=== PATIENT | female | born 1990 | race African-American/Black ===

== ENCOUNTER 2016-03-25 13:37 | Observation (INO) | payer OTHER ==
[2016-03-25] MEDS ORDERED: ONDANSETRON 4 MG/2 ML VIAL IVP STA ×2 (14:19→18:39)
[2016-03-25] MEDS ORDERED: SODIUM CHLORIDE 0.9% 500 ML IV STA (14:19)
[2016-03-25] MEDS ORDERED: SODIUM CHLORIDE 0.9% 1,000 ML IV STA (14:19)
[2016-03-25] MEDS ORDERED: MORPHINE SULFATE 2 MG/ML SYRINGE IVP ONE (14:25)
--- NOTE | 2016-03-25 14:30 | ED ---
Nausea/Vomiting/Diarrhea HPI - General Chief complaint: Nausea/Vomiting/Diarrhea Stated complaint: Vomiting Time Seen by Provider: 03/25/16 14:09 Source: patient Mode of arrival: ambulatory Limitations: no limitations - History of Present Illness Initial comments: She vomited several times since 2 AM this morning she said she threw up about 5 times also complaining of abdominal pain is painful in the right upper quadrant area painful in the right lower quadrant area and it hurts to P as well she denies any fever no chills. She had a hamburger and fries at [employer] yesterday and that she had a feeling of uneasiness after she ate that meal she is concerned he could've been food poisoning. She has no history of any abdominal surgeries as well as appendix and gallbladder is concerned. Denies any headaches no migraines no chest pains review of system is otherwise negative - Related Data Home Medications Medication Instructions Recorded Confirmed No Known Home Medications [No 03/25/16 03/25/16 Known Home Medications] Allergies Allergy/AdvReac Type Severity Reaction Status Date / Time No Known Allergies Allergy Verified 03/25/16 13:53 Review of Systems ROS Statement: Those systems with pertinent positive or pertinent negative responses have been documented in the HPI. ROS Other: All systems not noted in ROS Statement are negative. Past Medical History Past Medical History: No Reported History History of Any Multi-Drug Resistant Organisms: None Reported, MRSA Date of last positivie culture/infection: 2010 MDRO Source:: inner left thigh Past Surgical History: Ear Surgery, Tonsillectomy Past Anesthesia/Blood Transfusion Reactions: No Reported Reaction Past Psychological History: No Psychological Hx Reported Smoking Status: Never smoker Past Alcohol Use History: None Reported Past Drug Use History: None Reported - Past Family History Father Family Medical History: Diabetes Mellitus General Exam - General Exam Comments Initial Comments: General: The patient is awake and alert, in no distress, and does not appear acutely ill. GCS is 15 Skin: Skin is warm and dry and no rashes or lesions are noted. Eye: Pupils are equal, round and reactive to light, extra-ocular movements are intact; there is normal conjunctiva bilaterally. Ears, nose, mouth and throat: There are moist mucous membranes and no oral lesions. Trachea is midline Neck: The neck is supple, there is no tenderness no signs of meningitis Cardiovascular: There is a regular rate and rhythm. No murmur, rub or gallop is appreciated. Respiratory: To auscultation bilateral, no wheezing no rhonchi no distress respiratory cl[place] noticed Gastrointestinal: Tender in the right upper quadrant area as well as right lower quadrant area, positive bowel sounds no guarding no rebounds Back: There is no tenderness to palpation in the midline. There is no obvious deformity. Musculoskeletal: Normal ROM, no tenderness, There is no pedal edema. There is no calf tenderness or swelling. No cords were appreciated. Neurological: CN II-XII intact, Cranial nerves III through XII are intact. There are no obvious motor or sensory deficits. Coordination appears grossly intact. Speech is normal. Psychiatric: Cooperative, appropriate mood & affect, normal judgment. Limitations: no limitations Course Vital Signs 03/25/16 03/25/16 13:46 17:31 Temperature 97.4 F L 97.9 F Pulse Rate 100 84 Respiratory 20 18 Rate Blood Pressure 121/84 124/58 O2 Sat by Pulse 97 100 Oximetry Had 1627 she is still nauseous and complaining about abdominal pain I reviewed the blood work as well as imaging and discussed with the patient considering her symptoms she will proceed with a CAT scan report and do the CT of the abdomen She was reassessed again at 1800 she still feels nauseous and complaining about pain in the right lower quadrant area exam on exam she forming machine tender right lower quadrant area, CT of the abdomen was reviewed and discussed with the patient and the CT of the abdomen shows some thickening of the appendix and considering her tenderness though her CBC, his metabolic panel a year or 3 are negative and she been afebrile but she is tender around plan to discuss the Dr. Nelson surgeon head correction officer and then go from there Dr. Nelson agreed to see the patient in the ER Medical Decision Making - Lab Data Result diagrams: 03/25/16 14:28 03/25/16 14:30 Lab Results 03/25/16 03/25/16 03/25/16 Range/Units 14:28 14:28 14:28 WBC 6.1 (3.8-10.6) k/uL RBC 4.71 (3.80-5.40) m/uL Hgb 14.2 (11.4-16.0) gm/dL Hct 44.2 (34.0-46.0) % MCV 93.9 (80.0-100.0) fL MCH 30.1 (25.0-35.0) pg MCHC 32.0 (31.0-37.0) g/dL RDW 12.3 (11.5-15.5) % Plt Count 247 (150-450) k/uL Neutrophils % 68 % Lymphocytes % 20 % Monocytes % 8 % Eosinophils % 2 % Basophils % 0 % Neutrophils # 4.1 (1.3-7.7) k/uL Lymphocytes # 1.2 (1.0-4.8) k/uL Monocytes # 0.5 (0-1.0) k/uL Eosinophils # 0.1 (0-0.7) k/uL Basophils # 0.0 (0-0.2) k/uL Sodium (137-145) mmol/L Potassium (3.5-5.1) mmol/L Chloride (98-107) mmol/L Carbon Dioxide (22-30) mmol/L Anion Gap mmol/L BUN (7-17) mg/dL Creatinine (0.52-1.04) mg/dL Est GFR (MDRD) Af Amer (>60 ml/min/1.73 sqM) Est GFR (MDRD) Non-Af (>60 ml/min/1.73 sqM) Glucose (74-99) mg/dL Calcium (8.4-10.2) mg/dL Total Bilirubin (0.2-1.3) mg/dL AST (14-36) U/L ALT (9-52) U/L Alkaline Phosphatase (38-126) U/L C-Reactive Protein 13.8 H (<10.0) mg/L Total Protein (6.3-8.2) g/dL Albumin (3.5-5.0) g/dL Amylase 48 (30-110) U/L Lipase 35 (23-300) U/L Urine Color Yellow Urine Appearance Cloudy H (Clear) Urine pH 6.5 (5.0-8.0) Ur Specific [place] 1.028 (1.001-1.035) Urine Protein 1+ H (Negative) Urine Glucose (UA) Negative (Negative) Urine Ketones Negative (Negative) Urine Blood Negative (Negative) Urine Nitrate Negative (Negative) Urine Bilirubin Negative (Negative) Urine Urobilinogen 4.0 (<2.0) mg/dL Ur Leukocyte Esterase Negative (Negative) Urine RBC 1 (0-5) /hpf Urine WBC 8 H (0-5) /hpf Ur Squamous Epith Cells 48 H (0-4) /hpf Amorphous Sediment Rare H (None) /hpf Urine Mucus Few H (None) /hpf Urine HCG, Qual (Not Detectd) 03/25/16 03/25/16 Range/Units 14:28 14:30 WBC (3.8-10.6) k/uL RBC (3.80-5.40) m/uL Hgb (11.4-16.0) gm/dL Hct (34.0-46.0) % MCV (80.0-100.0) fL MCH (25.0-35.0) pg MCHC (31.0-37.0) g/dL RDW (11.5-15.5) % Plt Count (150-450) k/uL Neutrophils % % Lymphocytes % % Monocytes % % Eosinophils % % Basophils % % Neutrophils # (1.3-7.7) k/uL Lymphocytes # (1.0-4.8) k/uL Monocytes # (0-1.0) k/uL Eosinophils # (0-0.7) k/uL Basophils # (0-0.2) k/uL Sodium 141 (137-145) mmol/L Potassium 4.2 (3.5-5.1) mmol/L Chloride 105 (98-107) mmol/L Carbon Dioxide 23 (22-30) mmol/L Anion Gap 13 mmol/L BUN 15 (7-17) mg/dL Creatinine 0.82 (0.52-1.04) mg/dL Est GFR (MDRD) Af Amer >60 (>60 ml/min/1.73 sqM) Est GFR (MDRD) Non-Af >60 (>60 ml/min/1.73 sqM) Glucose 87 (74-99) mg/dL Calcium 9.8 (8.4-10.2) mg/dL Total Bilirubin 1.2 (0.2-1.3) mg/dL AST 21 (14-36) U/L ALT 26 (9-52) U/L Alkaline Phosphatase 72 (38-126) U/L C-Reactive Protein (<10.0) mg/L Total Protein 7.8 (6.3-8.2) g/dL Albumin 4.4 (3.5-5.0) g/dL Amylase (30-110) U/L Lipase (23-300) U/L Urine Color Urine Appearance (Clear) Urine pH (5.0-8.0) Ur Specific [place] (1.001-1.035) Urine Protein (Negative) Urine Glucose (UA) (Negative) Urine Ketones (Negative) Urine Blood (Negative) Urine Nitrate (Negative) Urine Bilirubin (Negative) Urine Urobilinogen (<2.0) mg/dL Ur Leukocyte Esterase (Negative) Urine RBC (0-5) /hpf Urine WBC (0-5) /hpf Ur Squamous Epith Cells (0-4) /hpf Amorphous Sediment (None) /hpf Urine Mucus (None) /hpf Urine HCG, Qual Not Detected (Not Detectd) Disposition Clinical Impression: Abdominal pain Disposition: ADMITTED IP TO THIS [facility] Condition: Good Referrals: Logan Ray MD [Primary Care Provider] - 1-2 days
[2016-03-25 14:47] LABS: Basophils % (A) 0 %; CH 30.5; CHCM 32.6; Eosinophils # (A) 0.1 k/uL (0-0.7); Eosinophils % (A) 2 %; HCT 44.2 % (34.0-46.0); HGB 14.2 gm/dL (11.4-16.0); Luc # (Auto) 0.09; Luc % (Auto) 2; Lymphocytes # (A) 1.2 k/uL (1.0-4.8); Lymphocytes % (A) 20 %; MCH 30.1 pg (25.0-35.0); MCV 93.9 fL (80.0-100.0); Mean Platelet Volume 7.5; Monocytes # (A) 0.5 k/uL (0-1.0); Monocytes % (A) 8 %; Neutrophils # (A) 4.1 k/uL (1.3-7.7); Neutrophils % (A) 68 %; RBC 4.71 m/uL (3.80-5.40); RDW 12.3 % (11.5-15.5); WBC 6.1 k/uL (3.8-10.6); WBC (Perox) 6.23
[2016-03-25 14:50] LABS: Amorphous Sediment,Urine Rare /hpf; Appearance,Urine Cloudy (Clear); Bilirubin,Urine Negative (Negative); Glucose,Urine (UA) Negative (Negative); Ketones,Urine Negative (Negative); Leukocyte Esterase,Urine Negative (Negative); Mucus,Urine Few /hpf; Nitrite,Urine Negative (Negative); PH, Urine 6.5 (5.0-8.0); Particle Count 11301; Protein,Urine 1+ (Negative); RBC,Urine 1 /hpf (0-5); Specific Gravity,Urine 1.028 (1.001-1.035); Squamous Epithelial Cell,Urine 48 /hpf (0-4); UA Billing (MACRO vs. MICRO) MICRO; WBC,Urine 8 /hpf (0-5)
[2016-03-25 14:58] LABS: C Reactive Protein 13.8 mg/L (<10.0)
--- NOTE | 2016-03-25 15:50 | XR ---
EXAMINATION TYPE: XR KUB DATE OF EXAM: 03/25/2016 3:19 PM COMPARISON: NONE HISTORY: Vomiting TECHNIQUE: 2 views FINDINGS: Bowel gas pattern is normal. There is no sign of intestinal obstruction or pneumoperitoneum . Fecal pattern is normal. Bony structures are intact. There are no pathologic calcifications over th e kidneys. IMPRESSION: Nonacute abdomen.
--- NOTE | 2016-03-25 15:50 | XR ---
EXAMINATION TYPE: XR chest 2V DATE OF EXAM: 03/25/2016 3:19 PM COMPARISON: 04/23/2015 HISTORY: 2 views TECHNIQUE: Frontal and lateral views of the chest are obtained. FINDINGS: Heart and mediastinum are normal. Lungs are clear. Diaphragm is normal. Bony thorax and so ft tissues appear normal. IMPRESSION: Normal chest. No change.
[2016-03-25 15:57] LABS: ALT 26 U/L (9-52); AST 21 U/L (14-36); Alkaline Phosphatase 72 U/L (38-126); Anion Gap 13 mmol/L; Blood Urea Nitrogen 15 mg/dL (7-17); Calcium 9.8 mg/dL (8.4-10.2); Carbon Dioxide 23 mmol/L (22-30); Chloride 105 mmol/L (98-107); Glucose 87 mg/dL (74-99); Non-African American GFR(MDRD) >60 (>60 ml/min/1.73 sqM); Potassium 4.2 mmol/L (3.5-5.1); Sodium 141 mmol/L (137-145); Total Bilirubin 1.2 mg/dL (0.2-1.3); Total Protein 7.8 g/dL (6.3-8.2)
[2016-03-25] MEDS ORDERED: RX INFO: IV CONTRAST WAS GIVEN 1 EACH MISC MISCELLANE PRN (16:28)
--- NOTE | 2016-03-25 17:44 | CT ---
EXAMINATION TYPE: CT abdomen pelvis w con DATE OF EXAM: 03/25/2016 5:37 PM COMPARISON: NONE HISTORY: Nausea, vomiting and painful urination CT DLP: 706 mGycm Automated exposure control for dose reduction was used. TECHNIQUE: Helical acquisition of images was performed from the lung bases through the pelvis. CONTRAST: Performed without Oral Contrast and with IV Contrast, patient injected with 100 mL of Omnipaque 300. FINDINGS: Lung bases are clear. There is no pleural effusion. Liver spleen pancreas and gallbladder appear normal. Bile ducts are nondilated. There is no adrenal m ass. Kidneys show satisfactory contrast opacification. There is no hydronephrosis. Ureters are not di lated. There is no ascites. I see no intestinal wall thickening. There are no dilated loops. Bladder distend s smoothly. There is no evidence of a pelvic mass. The appendix is upper limit of normal thickness an d measures up to 8 mm. The bony structures are intact. IMPRESSION: THERE IS A CORTICAL THICKENING OF THE APPENDIX. APPENDICITIS CANNOT BE ENTIRELY EXCLUDED. CLINICAL CORRELATION IS RECOMMENDED. NO PELVIC MASS SEEN.
[2016-03-25] MEDS ORDERED: SODIUM CHLORIDE 0.9% 1,000 ML IV ONE (18:37)
[2016-03-25 19:40] VITALS: BMI 25.8
[2016-03-25] MEDS: MORPHINE SULFATE 4 MG/ML SYRINGE IVP PRN (19:47)
[2016-03-25] MEDS ORDERED: METOCLOPRAMIDE 5 MG/ML 2 ML VIAL ONE (20:41)
[2016-03-25] MEDS: METOCLOPRAMIDE 5 MG/ML 2 ML VIAL IVP SCH (20:42)
[2016-03-25] MEDS ORDERED: ONDANSETRON 4 MG/2 ML VIAL IVP PRN (21:14)
[2016-03-25 23:19] VITALS: RESP 16
[2016-03-26] MEDS: MORPHINE SULFATE 4 MG/ML SYRINGE IVP PRN (01:29)
[2016-03-26] MEDS: METOCLOPRAMIDE 5 MG/ML 2 ML VIAL IVP SCH ×2 (05:27→11:41)
[2016-03-26 07:01] LABS: Basophils # (A) 0.1 k/uL (0-0.2); Basophils % (A) 1 %; CH 30.3; CHCM 32.3; Eosinophils # (A) 0.3 k/uL (0-0.7); Eosinophils % (A) 7 %; HCT 37.3 % (34.0-46.0); HDW 2.12; Luc # (Auto) 0.17; Luc % (Auto) 4; Lymphocytes # (A) 2.1 k/uL (1.0-4.8); Lymphocytes % (A) 49 %; MCH 30.3 pg (25.0-35.0); MCHC 32.1 g/dL (31.0-37.0); MCV 94.2 fL (80.0-100.0); Mean Platelet Volume 7.7; Monocytes # (A) 0.5 k/uL (0-1.0); Monocytes % (A) 11 %; Neutrophils # (A) 1.2 k/uL (1.3-7.7); Neutrophils % (A) 29 %; RBC 3.96 m/uL (3.80-5.40); RDW 12.1 % (11.5-15.5); WBC 4.3 k/uL (3.8-10.6); WBC (Perox) 4.18
[2016-03-26 07:14] LABS: ALT 27 U/L (9-52); AST 18 U/L (14-36); Alkaline Phosphatase 59 U/L (38-126); Anion Gap 8 mmol/L; Blood Urea Nitrogen 10 mg/dL (7-17); Carbon Dioxide 23 mmol/L (22-30); Chloride 108 mmol/L (98-107); Glucose 73 mg/dL (74-99); Non-African American GFR(MDRD) >60 (>60 ml/min/1.73 sqM); Sodium 139 mmol/L (137-145); Total Bilirubin 0.6 mg/dL (0.2-1.3); Total Protein 5.9 g/dL (6.3-8.2)
[2016-03-26] MEDS ORDERED: HYDROcodone/APAP 5-325MG 1 EACH TAB PO PRN (09:54)
--- NOTE | 2016-03-26 10:22 | P.GSHP ---
History of Present Illness H&P Date: 04/02/16 Chief Complaint: Abdominal pain 25 years old female presented with bilateral lower abdominal pain with nausea and vomiting. She is also having multiple bowel movements. No fever, chills or rigors. Some burning sensation in the urine. Last menstrual period 2 weeks ago. No prior history of similar painful episodes. Pain rated 7 out of 10. Patient slept well throughout the night. - Review of Systems Comment: Constitutional: Denies fever, weight loss or loss of appetite HEENT: No difficulty in vision or hearing. Denies dysphagia. Cardiovascular: Denies chest pain, palpitations, dizziness, shortness of breath. Respiratory: No cough or shortness of breath Gastrointestinal: No recent change in bowel habits, no abdominal pain, no nausea or vomiting. Genitourinary: No urinary incontinence, hematuria or dysuria Neurologic: No seizures, denies weakness in upper or lower extremities Past Medical History Past Medical History: No Reported History, Pneumonia History of Any Multi-Drug Resistant Organisms: None Reported, MRSA Date of last positivie culture/infection: 2010 MDRO Source:: inner left thigh Past Surgical History: Ear Surgery, Tonsillectomy Past Anesthesia/Blood Transfusion Reactions: No Reported Reaction Past Psychological History: No Psychological Hx Reported Smoking Status: Never smoker Past Alcohol Use History: None Reported Past Drug Use History: None Reported - Past Family History Father Family Medical History: Diabetes Mellitus Medications and Allergies Home Medications Medication Instructions Recorded Confirmed Type No Known Home Medications [No 03/25/16 03/25/16 History Known Home Medications] Allergies Allergy/AdvReac Type Severity Reaction Status Date / Time No Known Allergies Allergy Verified 03/25/16 19:51 Surgical - Exam Vital Signs Temp Pulse Resp BP Pulse Ox 97.4 F L 100 20 121/84 97 03/25/16 13:46 03/25/16 13:46 03/25/16 13:46 03/25/16 13:46 03/25/16 13:46 General: Patient is alert and oriented to time, place and person and cooperative with exam. HEENT: No pallor, no icterus, Chest: Bilateral equal breath sounds present. No wheezes, no crackles. Cardiovascular: Regular rate and rhythm. Abdomen: SOft, nondistended. Bilateral lower quadrant tenderness on deep palpation. Neurologic: Cranial nerves II-XII intact. Strength upper and lower extremities 5/5. No focal neurologic deficits. Gait is normal. Psychiatric: No anxiety or psychosis. No suicidal thoughts. Results - Labs 03/26/16 06:48 03/26/16 06:45 Abnormal Lab Results - Last 24 Hours (Table) 03/26/16 03/26/16 Range/Units 06:45 06:48 Neutrophils # 1.2 L (1.3-7.7) k/uL Chloride 108 H (98-107) mmol/L Glucose 73 L (74-99) mg/dL Total Protein 5.9 L (6.3-8.2) g/dL Albumin 3.2 L (3.5-5.0) g/dL Diabetes panel 03/26/16 Range/Units 06:45 Sodium 139 (137-145) mmol/L Potassium 4.0 (3.5-5.1) mmol/L Chloride 108 H (98-107) mmol/L Carbon Dioxide 23 (22-30) mmol/L BUN 10 (7-17) mg/dL Creatinine 0.89 (0.52-1.04) mg/dL Glucose 73 L (74-99) mg/dL Calcium 9.0 (8.4-10.2) mg/dL AST 18 (14-36) U/L ALT 27 (9-52) U/L Alkaline Phosphatase 59 (38-126) U/L Total Protein 5.9 L (6.3-8.2) g/dL Albumin 3.2 L (3.5-5.0) g/dL Calcium panel 03/26/16 Range/Units 06:45 Calcium 9.0 (8.4-10.2) mg/dL Albumin 3.2 L (3.5-5.0) g/dL Pituitary panel 03/26/16 Range/Units 06:45 Sodium 139 (137-145) mmol/L Potassium 4.0 (3.5-5.1) mmol/L Chloride 108 H (98-107) mmol/L Carbon Dioxide 23 (22-30) mmol/L BUN 10 (7-17) mg/dL Creatinine 0.89 (0.52-1.04) mg/dL Glucose 73 L (74-99) mg/dL Calcium 9.0 (8.4-10.2) mg/dL Adrenal panel 03/26/16 Range/Units 06:45 Sodium 139 (137-145) mmol/L Potassium 4.0 (3.5-5.1) mmol/L Chloride 108 H (98-107) mmol/L Carbon Dioxide 23 (22-30) mmol/L BUN 10 (7-17) mg/dL Creatinine 0.89 (0.52-1.04) mg/dL Glucose 73 L (74-99) mg/dL Calcium 9.0 (8.4-10.2) mg/dL Total Bilirubin 0.6 (0.2-1.3) mg/dL AST 18 (14-36) U/L ALT 27 (9-52) U/L Alkaline Phosphatase 59 (38-126) U/L Total Protein 5.9 L (6.3-8.2) g/dL Albumin 3.2 L (3.5-5.0) g/dL - Imaging CT scan - abdomen: other (Computed tomography scan of the abdomen and pelvis reviewed. No evidence of acute appendicitis. No fat stranding. Air present in the appendiceal lumen. Computed tomography scan reviewed with radiologist Dr. Aguirre) Assessment and Plan (1) Abdominal pain Status: Acute Plan: 1. Start clear liquid diet 2. No leukocytosis. Patient was not given any IV antibiotics. 3. IV hydration 4. Discharge planning in next 24 hours
[2016-03-26 11:42] VITALS: BP 97/45; PULSE 65; TEMP 98.6
--- NOTE | 2016-03-26 14:54 | P.DS ---
Providers Date of admission: 03/25/16 18:37 Expected date of discharge: 03/26/16 Attending physician: Alana Nelson Primary care physician: [facility] Hospital Course: 25-year-old female presented on the day of admission to the emergency room to be evaluated for a chief complaint of developing bilateral lower abdominal pain with nausea and vomiting. Patient reports that she had been having multiple bowel movements. Additionally patient reports not experiencing any fever chills or rigors. Patient's last menstrual period was 2 weeks prior. Patient gives no history of any similar painful episodes. Patient did report in the emergency room that she had vomited several times since 2:00 in the morning and it seemed to occur after she ate a hamburger and vietnamese fries. She states after eating the food she had a non-easy sensation and was concerned that she may have developed food poisoning. There were no other family members sick. Patient has no significant past surgical history. Emergency room the patient had a CAT scan of the abdomen and pelvis. Showed no evidence of acute appendicitis. Patient was started on IV fluid and clear liquid diet the symptoms resolve. There was no leukocytosis. Patient was not given any antibiotics. Patient was felt to be hemodynamically stable and appropriate proceed with a discharge on March 26 Impression discharge diagnosis Present on admission nausea vomiting frequent stooling suspect due to gastroenteritis possible viral resolved Computerized CAT scan of the abdomen and pelvis shows no evidence of acute appendicitis The above dictated assessment and findings were discussed with dr nelson. Impression and the plan of care have been dictated as directed. Alvina Breaux nurse practitioner acting as a scribe for dr nelson Patient Condition at Discharge: Good Plan - Discharge Summary Discharge Medication List No Known Home Medications [No Known Home Medications] 03/25/16 [History] Follow up Appointment(s)/Referral(s): Logan Ray MD [Primary Care Provider] - 1-2 days Discharge Disposition: HOME SELF-CARE
== END 2016-03-26 15:45 | disposition home or self-care (01) ==
LOC: EC 13:37 → 3OBS 18:37
PROVIDERS: ADMIT Surgery; ATTEND Surgery
DX: R11.2 Nausea with vomiting, unspecified (principal); R10.31 Right lower quadrant pain; Z86.14 Personal history of Methicillin resistant Staphylococcus aureus infection; Z83.3 Family history of diabetes mellitus
CPT/HCPCS: 36415; 80053 ×2; 82150; 83690; 85025 ×2; 86140; 81001; 81025; 87491; 87591; 71020; 74000; 74177; 99285; 96374; 96375; 96376; 96361 ×5; G0378 ×2; J2270 ×3; J2765 ×2; J2405 ×2; Q9967

== ENCOUNTER 2016-04-27 12:39 | Emergency (ER) | payer OTHER ==
[2016-04-27 12:54] VITALS: BP 121/68; PULSE 88; RESP 17; TEMP 98.8
--- NOTE | 2016-04-27 13:34 | ED ---
General Adult HPI - General Chief complaint: Fever Stated complaint: Fever/Cough Time Seen by Provider: 04/27/16 12:57 Source: patient, RN notes reviewed Mode of arrival: ambulatory Limitations: no limitations - History of Present Illness Initial comments: This is a 25-year-old female presents with 2 days of cough, congestion and vomiting/diarrhea. Mother states her children have had similar symptoms and she has recently come down with them. Patient states the cough has been productive. Mother admits to a fever but this is only subjective. Mother admits to a sore throat. Mother denies any chance of being . Mother did not receive a flu shot this year. Mother denies any hematochezia or hematemesis. Patient denies any recent shortness breath, chest pain, abdominal pain, back pain, numbness, tingling, hematuria, headache, or visual changes, or any other complaints. - Related Data Previous Rx's Medication Instructions Recorded Oseltamivir [Tamiflu] 75 mg PO Q12HR 5 Days 04/27/16 Allergies Allergy/AdvReac Type Severity Reaction Status Date / Time No Known Allergies Allergy Verified 03/25/16 19:51 Review of Systems ROS Statement: Those systems with pertinent positive or pertinent negative responses have been documented in the HPI. ROS Other: All systems not noted in ROS Statement are negative. Past Medical History Past Medical History: No Reported History, Pneumonia History of Any Multi-Drug Resistant Organisms: None Reported, MRSA Date of last positivie culture/infection: 2010 MDRO Source:: inner left thigh Past Surgical History: Ear Surgery, Tonsillectomy Past Anesthesia/Blood Transfusion Reactions: No Reported Reaction Past Psychological History: No Psychological Hx Reported Smoking Status: Never smoker Past Alcohol Use History: None Reported Past Drug Use History: None Reported - Past Family History Father Family Medical History: Diabetes Mellitus General Exam - General Exam Comments Initial Comments: General: The patient is awake and alert, in no distress, and does not appear acutely ill. Eye: Pupils are equal, round and reactive to light, extra-ocular movements are intact. No nystagmus. There is normal conjunctiva bilaterally. No signs of icterus. Ears: TMs pink and pearly with intact cone of light bilaterally. Normal external ear canals Nose: Nasal turbinates pink and moist Mouth and throat: There are moist mucous membranes and no oral lesions. Neck: Anterior cervical chain lymphadenopathy present and mildly tender. The neck is supple, there is no JVD. Cardiovascular: There is a regular rate and rhythm. No murmur, rub or gallop is appreciated. Respiratory: Lungs are clear to auscultation, respirations are non-labored, breath sounds are equal. No wheezes, stridor, rales, or rhonchi. Musculoskeletal: Normal ROM, no tenderness. Strength 5/5. Sensation intact. Radial pulses equal bilaterally 2+. Neurological: A&O x 3. CN II-XII intact, There are no obvious motor or sensory deficits. Coordination appears grossly intact. Speech is normal. Skin: Skin is warm and dry and no rashes or lesions are noted. Psychiatric: Cooperative, appropriate mood & affect, normal judgment. Limitations: no limitations Course Vital Signs 04/27/16 12:51 Temperature 98.8 F Pulse Rate 88 Respiratory 17 Rate Blood Pressure 121/68 O2 Sat by Pulse 95 Oximetry Medical Decision Making - Medical Decision Making This is a 25-year-old female presents with cough, congestion and nausea/ vomiting 2 days. The goal exam lungs are clear to auscultation. Patient is afebrile in the EC. A chest x-ray, influenza and rapid strep were done. Chest x-ray was reviewed: No acute process. Report read by Dr. Hansen. A strep and influenza were done. Influenza B came back positive, influenza A was negative. Strep came back negative. I discussed results with patient. Patient states her symptoms have started within the last 48 hours. I discussed the patient will be started on Tamiflu. I discussed Tylenol and or Motrin as needed for any pain or fever symptoms. I discussed the patient needs to drink plenty of fluids. I discussed return parameters.Discussed that patient should follow up with PCP in one to 2 days or return to the EC for any worsening symptoms or for any further concerns. Patient was receptive to this plan and patient will be discharged home. - Lab Data Lab Results 04/27/16 04/27/16 Range/Units 13:18 13:18 Influenza Type A RNA Not Detected (Not Detectd) Influenza Type B (PCR) Detected H (Not Detectd) Group A Strep Rapid Negative (Negative) Disposition Clinical Impression: Influenza B Disposition: HOME SELF-CARE Condition: Good Instructions: Influenza (ED) Additional Instructions: Please use Tamiflu as prescribed. Please be sure to drink plenty of fluids. Please use Tylenol or Motrin as needed for any pain or fever symptoms. Please use medication as discussed. Please follow-up with family doctor in the next 2 days of symptoms have not improved. Please return to emergency room if the symptoms increase or worsen or for any other concerns. Prescriptions: Oseltamivir [Tamiflu] 75 mg PO Q12HR 5 Days Time of Disposition: 14:18
--- NOTE | 2016-04-27 14:06 | XR ---
EXAMINATION TYPE: XR chest 2V DATE OF EXAM: 04/27/2016 2:02 PM COMPARISON: 03/25/2016 TECHNIQUE: PA and lateral views submitted. HISTORY: Cough and congestion FINDINGS: The lungs are clear and there is no pneumothorax, pleural effusion, or focal pneumonia. IMPRESSION: 1. No acute process.
== END 2016-04-27 15:22 | disposition home or self-care (01) ==
LOC: EC 12:39
DX: J10.1 Influenza due to other identified influenza virus with other respiratory manifestations (principal); J10.2 Influenza due to other identified influenza virus with gastrointestinal manifestations
CPT/HCPCS: 71020; 87081; 87430; 87502; 99283

== ENCOUNTER 2016-12-08 16:24 | Emergency (ER) | payer OTHER ==
[2016-12-08] MEDS ORDERED: SODIUM CHLORIDE 0.9% 1,000 ML IV STA (16:35)
[2016-12-08] MEDS ORDERED: DICYCLOMINE 10 MG/ML 2 ML AMP IM STA (16:35)
[2016-12-08] MEDS ORDERED: ONDANSETRON 4 MG/2 ML VIAL IVP STA (16:35)
[2016-12-08 16:57] LABS: Basophils # (A) 0.1 k/uL (0-0.2); Basophils % (A) 1 %; CH 30.4; CHCM 32.4; Eosinophils # (A) 0.3 k/uL (0-0.7); Eosinophils % (A) 5 %; HCT 40.9 % (34.0-46.0); HGB 13.2 gm/dL (11.4-16.0); Luc # (Auto) 0.18; Luc % (Auto) 3; Lymphocytes # (A) 2.8 k/uL (1.0-4.8); Lymphocytes % (A) 45 %; MCH 30.4 pg (25.0-35.0); MCHC 32.2 g/dL (31.0-37.0); MCV 94.3 fL (80.0-100.0); Mean Platelet Volume 7.3; Monocytes # (A) 0.4 k/uL (0-1.0); Monocytes % (A) 7 %; Neutrophils # (A) 2.4 k/uL (1.3-7.7); Neutrophils % (A) 39 %; RBC 4.34 m/uL (3.80-5.40); RDW 12.3 % (11.5-15.5); WBC 6.2 k/uL (3.8-10.6)
[2016-12-08 17:00] LABS: Appearance,Urine Clear (Clear); Bilirubin,Urine Negative (Negative); Glucose,Urine (UA) Negative (Negative); Ketones,Urine Negative (Negative); Leukocyte Esterase,Urine Negative (Negative); Nitrite,Urine Negative (Negative); PH, Urine 5.5 (5.0-8.0); Protein,Urine Negative (Negative); Specific Gravity,Urine 1.016 (1.001-1.035); UA Billing (MACRO vs. MICRO) CHEM; Urobilinogen,Urine <2.0 mg/dL (<2.0)
[2016-12-08 17:08] LABS: ALT 28 U/L (9-52); AST 20 U/L (14-36); Alkaline Phosphatase 50 U/L (38-126); Amylase 56 U/L (30-110); Anion Gap 10 mmol/L; Blood Urea Nitrogen 9 mg/dL (7-17); Calcium 9.3 mg/dL (8.4-10.2); Carbon Dioxide 22 mmol/L (22-30); Chloride 107 mmol/L (98-107); Glucose 88 mg/dL (74-99); Non-African American GFR(MDRD) >60 (>60 ml/min/1.73 sqM); Potassium 3.8 mmol/L (3.5-5.1); Sodium 139 mmol/L (137-145); Total Bilirubin 0.7 mg/dL (0.2-1.3); Total Protein 7.1 g/dL (6.3-8.2)
--- NOTE | 2016-12-08 17:12 | ED ---
General Adult HPI - General Chief complaint: Abdominal Pain Stated complaint: vomiting, diarrhea, lower abdominal pain Time Seen by Provider: 12/08/16 16:29 Source: patient, RN notes reviewed Mode of arrival: ambulatory Limitations: no limitations - History of Present Illness Initial comments: 26-year-old female presents to the emergency department with a chief complaint nausea vomiting diarrhea that started today. She states that she's vomited a few times and had diarrhea. Patient states she's having some abdominal cramping with this. Patient denies any fever chills. Patient denies any different foods. Patient states now it also sick at home. Patient was concerned due to the nausea vomiting so she thought that she should be evaluated. Patient denies any recent fever, chills, shortness of breath, chest pain, back pain, abdominal pain, numbness or tingling, dysuria or hematuria, constipation, headaches or visual changes, or any other current symptoms. - Related Data Previous Rx's Medication Instructions Recorded Dicyclomine [Bentyl] 10 mg PO TID #20 capsule 12/08/16 Ondansetron Odt [Zofran ODT] 4 mg PO Q8HR PRN #20 tab 12/08/16 Allergies Allergy/AdvReac Type Severity Reaction Status Date / Time No Known Allergies Allergy Verified 12/08/16 16:48 Review of Systems ROS Statement: Those systems with pertinent positive or pertinent negative responses have been documented in the HPI. ROS Other: All systems not noted in ROS Statement are negative. Past Medical History Past Medical History: Pneumonia History of Any Multi-Drug Resistant Organisms: None Reported, MRSA Date of last positivie culture/infection: 2010 MDRO Source:: inner left thigh Past Surgical History: Ear Surgery, Tonsillectomy Past Anesthesia/Blood Transfusion Reactions: No Reported Reaction Past Psychological History: No Psychological Hx Reported Smoking Status: Never smoker Past Alcohol Use History: None Reported Past Drug Use History: None Reported - Past Family History Father Family Medical History: Diabetes Mellitus General Exam - General Exam Comments Initial Comments: General: The patient is awake and alert, in no distress, and does not appear acutely ill. Eye: Pupils are equal, round and reactive to light, extra-ocular movements are intact; there is normal conjunctiva bilaterally. No signs of icterus. Ears, nose, mouth and throat: There are moist mucous membranes and no oral lesions. Neck: The neck is supple, there is no tenderness. Cardiovascular: There is a regular rate and rhythm. No murmur, rub or gallop is appreciated. Respiratory: Lungs are clear to auscultation, respirations are non-labored, breath sounds are equal. No wheezes, stridor, rales, or rhonchi. Gastrointestinal: Soft, non-distended, non-tender abdomen without masses or organomegaly noted. There is no rebound or guarding present. No CVA tenderness. Bowel sounds are unremarkable. Back: There is no tenderness to palpation in the midline. There is no obvious deformity. No rashes noted. Musculoskeletal: Normal ROM, no tenderness, There is no pedal edema. There is no calf tenderness or swelling. Sensation intact. Pulses equal bilaterally 2+. Neurological: CN II-XII intact, There are no obvious motor or sensory deficits. Coordination appears grossly intact. Speech is normal. Skin: Skin is warm and dry and no rashes or lesions are noted. Psychiatric: Cooperative, appropriate mood & affect, normal judgment. Limitations: no limitations Course Vital Signs 12/08/16 16:27 Temperature 97.8 F Pulse Rate 101 H Respiratory 18 Rate Blood Pressure 138/61 O2 Sat by Pulse 100 Oximetry Medical Decision Making - Medical Decision Making 26-year-old female presents for nausea vomiting diarrhea. This time lab work has been reviewed we did discuss follow-up. Soft and nontender and she is feeling better. We'll give her Zofran and Bentyl for home. We did discuss all of her questions she stated that she understood this plan. This time she will be discharged. - Lab Data Result diagrams: 12/08/16 16:47 12/08/16 16:47 Lab Results 12/08/16 12/08/16 12/08/16 Range/Units 16:47 16:47 16:53 WBC 6.2 (3.8-10.6) k/uL RBC 4.34 (3.80-5.40) m/uL Hgb 13.2 (11.4-16.0) gm/dL Hct 40.9 (34.0-46.0) % MCV 94.3 (80.0-100.0) fL MCH 30.4 (25.0-35.0) pg MCHC 32.2 (31.0-37.0) g/dL RDW 12.3 (11.5-15.5) % Plt Count 252 (150-450) k/uL Neutrophils % 39 % Lymphocytes % 45 % Monocytes % 7 % Eosinophils % 5 % Basophils % 1 % Neutrophils # 2.4 (1.3-7.7) k/uL Lymphocytes # 2.8 (1.0-4.8) k/uL Monocytes # 0.4 (0-1.0) k/uL Eosinophils # 0.3 (0-0.7) k/uL Basophils # 0.1 (0-0.2) k/uL Sodium 139 (137-145) mmol/L Potassium 3.8 (3.5-5.1) mmol/L Chloride 107 (98-107) mmol/L Carbon Dioxide 22 (22-30) mmol/L Anion Gap 10 mmol/L BUN 9 (7-17) mg/dL Creatinine 0.83 (0.52-1.04) mg/dL Est GFR (MDRD) Af Amer >60 (>60 ml/min/1.73 sqM) Est GFR (MDRD) Non-Af >60 (>60 ml/min/1.73 sqM) Glucose 88 (74-99) mg/dL Calcium 9.3 (8.4-10.2) mg/dL Total Bilirubin 0.7 (0.2-1.3) mg/dL AST 20 (14-36) U/L ALT 28 (9-52) U/L Alkaline Phosphatase 50 (38-126) U/L Total Protein 7.1 (6.3-8.2) g/dL Albumin 4.0 (3.5-5.0) g/dL Amylase 56 (30-110) U/L Lipase 47 (23-300) U/L Urine Color Urine Appearance (Clear) Urine pH (5.0-8.0) Ur Specific [place] (1.001-1.035) Urine Protein (Negative) Urine Glucose (UA) (Negative) Urine Ketones (Negative) Urine Blood (Negative) Urine Nitrite (Negative) Urine Bilirubin (Negative) Urine Urobilinogen (<2.0) mg/dL Ur Leukocyte Esterase (Negative) Urine HCG, Qual Not Detected (Not Detectd) 12/08/16 Range/Units 16:53 WBC (3.8-10.6) k/uL RBC (3.80-5.40) m/uL Hgb (11.4-16.0) gm/dL Hct (34.0-46.0) % MCV (80.0-100.0) fL MCH (25.0-35.0) pg MCHC (31.0-37.0) g/dL RDW (11.5-15.5) % Plt Count (150-450) k/uL Neutrophils % % Lymphocytes % % Monocytes % % Eosinophils % % Basophils % % Neutrophils # (1.3-7.7) k/uL Lymphocytes # (1.0-4.8) k/uL Monocytes # (0-1.0) k/uL Eosinophils # (0-0.7) k/uL Basophils # (0-0.2) k/uL Sodium (137-145) mmol/L Potassium (3.5-5.1) mmol/L Chloride (98-107) mmol/L Carbon Dioxide (22-30) mmol/L Anion Gap mmol/L BUN (7-17) mg/dL Creatinine (0.52-1.04) mg/dL Est GFR (MDRD) Af Amer (>60 ml/min/1.73 sqM) Est GFR (MDRD) Non-Af (>60 ml/min/1.73 sqM) Glucose (74-99) mg/dL Calcium (8.4-10.2) mg/dL Total Bilirubin (0.2-1.3) mg/dL AST (14-36) U/L ALT (9-52) U/L Alkaline Phosphatase (38-126) U/L Total Protein (6.3-8.2) g/dL Albumin (3.5-5.0) g/dL Amylase (30-110) U/L Lipase (23-300) U/L Urine Color Yellow Urine Appearance Clear (Clear) Urine pH 5.5 (5.0-8.0) Ur Specific [place] 1.016 (1.001-1.035) Urine Protein Negative (Negative) Urine Glucose (UA) Negative (Negative) Urine Ketones Negative (Negative) Urine Blood Negative (Negative) Urine Nitrite Negative (Negative) Urine Bilirubin Negative (Negative) Urine Urobilinogen <2.0 (<2.0) mg/dL Ur Leukocyte Esterase Negative (Negative) Urine HCG, Qual (Not Detectd) - Radiology Data Radiology results: report reviewed, image reviewed Disposition Clinical Impression: Nausea & vomiting, Diarrhea Disposition: HOME SELF-CARE Condition: Stable Instructions: Acute Nausea and Vomiting (ED) Additional Instructions: Please use medication as discussed. Please follow up with family doctor if symptoms have not improved over the next two days. Please return to the emergency room if your symptoms increase or worsen or for any other concerns. Prescriptions: Dicyclomine [Bentyl] 10 mg PO TID #20 capsule Ondansetron Odt [Zofran ODT] 4 mg PO Q8HR PRN #20 tab PRN Reason: Nausea Referrals: Cari Andersen MD [STAFF PHYSICIAN] - 1-2 days Time of Disposition: 18:10
--- NOTE | 2016-12-08 18:07 | XR ---
EXAMINATION TYPE: XR abdomen 2V DATE OF EXAM: 12/08/2016 COMPARISON: 03/25/2016 INDICATION: Pain diarrhea TECHNIQUE: 2 view abdomen upright and supine views FINDINGS: There is a normal bowel gas pattern. Psoas margins are normal. No organomegaly is present. Neighboring is in the midline IMPRESSION: 1. Unremarkable Abdomen
[2016-12-08 18:16] VITALS: BP 111/66; PULSE 87; RESP 20; TEMP 98.2
== END 2016-12-08 18:16 | disposition home or self-care (01) ==
LOC: EC 16:24
DX: R11.2 Nausea with vomiting, unspecified (principal); R19.7 Diarrhea, unspecified; R10.9 Unspecified abdominal pain; Z86.14 Personal history of Methicillin resistant Staphylococcus aureus infection
CPT/HCPCS: 99284 ×2; 96374 ×2; 96361 ×2; 96372 ×2; 36415; 80053; 82150; 83690; 85025; 81003; 81025; 74020; J0500; J2405

== ENCOUNTER → 2017-01-25 | Outpatient (CLI) | payer OTHER ==
--- NOTE | 2017-01-25 14:29 | US ---
EXAMINATION TYPE: US OB <= 14 wk fetus DATE OF EXAM: 01/25/2017 COMPARISON: 07/23/2015 CLINICAL HISTORY: Z36 confirm dates. EXAM PERFORMED: Transabdominal (TA) EXAM MEASUREMENTS: GESTATIONAL AGE / DATING Physician Established: (9 weeks/5 days) EDC: 08/24/2017 Dates by LMP: (9 weeks/5 days) EDC: 08/24/2017 Dates by First Scan: No previous this is first scan Dates by Current Scan for: (10 weeks/2 days) EDC: 08/24/2017 MATERNAL ANATOMY Uterus: 16.0 x 10.4 x 2.2 cm Right Ovary: 2.2 x 1.9 x 1.7 cm Left Ovary: 4.1 x 3.1 x 2.6 cm Post CDS / Adnexa: wnl Presence of free fluid: no Presence of corpus luteal cyst: yes Presence of subchorionic bleed: no GESTATION / SURVEY CRL: 3.4 (10 weeks/2 days) Yolk Sac (normal less than 6mm): 4 Heart Rate: 168 bpm Rhythm: Normal IUP: Viable IUP Date of LMP: 11/17/2016 Beta HcG (if available): Not available at this time IMPRESSION: Viable 10 weeks 2 days with an EDC of 08/24/2017 and heart rate of 168 bpm.
== END | disposition home or self-care (01) ==
LOC: RADUSWWP 13:39
PROVIDERS: ATTEND Obstetrics & Gynecology
DX: Z36.9 Encounter for antenatal screening, unspecified (principal); Z3A.10 10 weeks gestation of pregnancy
CPT/HCPCS: 76801

== ENCOUNTER 2017-02-03 16:26 | Emergency (ER) | payer OTHER ==
[2017-02-03 16:34] VITALS: BP 112/71; PULSE 100; RESP 18; TEMP 97.4
--- NOTE | 2017-02-03 16:55 | ED ---
General Adult HPI - General Chief complaint: ENT Stated complaint: Sore throat Time Seen by Provider: 02/03/17 16:42 Source: patient, RN notes reviewed Mode of arrival: ambulatory Limitations: no limitations - History of Present Illness Initial comments: Chief complaint history of present illness is a 26-year-old female who is 11 weeks . States that his sore throat for 3 days. Several family members reevaluated at another hospital and had test done and they are all strep positive. - Related Data Home Medications Medication Instructions Recorded Confirmed Wis-Kkzk-Ingzz Acid 1 cap PO DAILY 02/03/17 02/03/17 [-U Capsule (formulary)] Previous Rx's Medication Instructions Recorded Azithromycin [Zithromax Z-pack] 250 mg PO DIRECTED #6 tab 02/03/17 Allergies Allergy/AdvReac Type Severity Reaction Status Date / Time No Known Allergies Allergy Verified 02/03/17 16:39 Review of Systems ROS Statement: Those systems with pertinent positive or pertinent negative responses have been documented in the HPI. Review of systems no other complaints other than sore throat. Mild nausea but no vomiting no rashes. All systems are reviewed. Past medical problems significant for pneumonia many years ago. Surgeries include tonsils and ear tubes. Family history as noted above several members had strep in the house. No cancers or family. Patient denies ALLERGIES patient denies smoking or drinking. ROS Other: All systems not noted in ROS Statement are negative. Past Medical History Past Medical History: Pneumonia History of Any Multi-Drug Resistant Organisms: None Reported, MRSA Date of last positivie culture/infection: 2010 MDRO Source:: inner left thigh Past Surgical History: Ear Surgery, Tonsillectomy Past Anesthesia/Blood Transfusion Reactions: No Reported Reaction Past Psychological History: No Psychological Hx Reported Smoking Status: Never smoker Past Alcohol Use History: None Reported Past Drug Use History: None Reported - Past Family History Father Family Medical History: Diabetes Mellitus General Exam - General Exam Comments Initial Comments: General: The patient is awake and alert, in no distress, and does not appear acutely ill. patient complains of a sore throat for the past 3 days afebrile. Mild nausea. 11 weeks . Several family members tested positive yesterday for strep pharyngitis. Eye: Pupils are equal, round and reactive to light, extra-ocular movements are intact ; there is normal conjunctiva bilaterally. No signs of icterus. Ears, nose, mouth and throat: beefy-red oropharynx no exudate. Neck: no stiff neck, mild anterior cervical lymphadenopathy. Cardiovascular: heart rate 100 , no murmur appreciated. Respiratory: Lungs are clear to auscultation, respirations are non-labored, breath sounds are equal. No wheezes, stridor, rales, or rhonchi. Gastrointestinal: mild nausea, patient's 11 weeks . She is following up with OB. No complaints otherwise. Skin: patient denies any rashes. Limitations: no limitations Course Vital Signs 02/03/17 16:31 Temperature 97.4 F L Pulse Rate 100 Respiratory 18 Rate Blood Pressure 112/71 O2 Sat by Pulse 100 Oximetry Medical Decision Making - Medical Decision Making patient scone the emergency room was a probable strep throat. Several family members report tested positive last night for. The patient will be placed on a Z-Ramírez for 5 days as directed. Told to use Tylenol for pain and fever. Follow- up DRAPERY SEAMSTRESS and family doctor. Disposition Clinical Impression: Strep pharyngitis Disposition: HOME SELF-CARE Condition: Fair Instructions: Strep Throat (ED) Additional Instructions: Increase fluids. Use Tylenol for pain and fever. Take Z-Ramírez as directed until completed. Follow-up with family physician and DRAPERY SEAMSTRESS or return emergency room as needed Prescriptions: Azithromycin [Zithromax Z-pack] 250 mg PO DIRECTED #6 tab Referrals: None,Stated [Primary Care Provider] - 1-2 days Time of Disposition: 16:55
== END 2017-02-03 17:05 | disposition home or self-care (01) ==
LOC: EC 16:26
DX: O99.511 Diseases of the respiratory system complicating pregnancy, first trimester (principal); J02.0 Streptococcal pharyngitis; Z86.14 Personal history of Methicillin resistant Staphylococcus aureus infection; Z79.899 Other long term (current) drug therapy
CPT/HCPCS: 99282

== ENCOUNTER 2017-03-15 17:36 | Emergency (ER) | payer OTHER ==
[2017-03-15 17:44] VITALS: TEMP 98.2
[2017-03-15] MEDS ORDERED: METOCLOPRAMIDE 5 MG/ML 2 ML VIAL IVP STA (18:37)
[2017-03-15] MEDS ORDERED: SODIUM CHLORIDE 0.9% 2,000 ML IV STA (18:37)
--- NOTE | 2017-03-15 18:39 | ED ---
Nausea/Vomiting/Diarrhea HPI - General Chief complaint: Nausea/Vomiting/Diarrhea Stated complaint: 17 weeks preg and vomiting Time Seen by Provider: 03/15/17 18:34 Source: patient, RN notes reviewed Mode of arrival: ambulatory Limitations: no limitations - History of Present Illness Initial comments: This is a 26-year-old female presents emergency Department chief complaint nausea vomiting diarrhea. Patient states symptoms started this morning. Patient is concerned that she is 17 weeks and APARTMENT MANAGER is Dr. Helm. Patient is A0. Patient denies any vaginal bleeding or vaginal discharge. She states that she has not had any contacts with similar symptoms. Denies fever or chills. Denies any dysuria or hematuria. Patient states she currently is taking her vitamin no other medications has normal drug ALLERGIES. Denies any abdominal surgeries. - Related Data Home Medications Medication Instructions Recorded Confirmed Gqw-Ukbr-Atkld Acid 1 cap PO DAILY 02/03/17 03/15/17 [-U Capsule (formulary)] Previous Rx's Medication Instructions Recorded Metoclopramide [Reglan] 10 mg PO TID PRN #7 tab 03/15/17 Allergies Allergy/AdvReac Type Severity Reaction Status Date / Time No Known Allergies Allergy Verified 03/15/17 18:46 Review of Systems ROS Statement: Those systems with pertinent positive or pertinent negative responses have been documented in the HPI. ROS Other: All systems not noted in ROS Statement are negative. Past Medical History Past Medical History: Pneumonia History of Any Multi-Drug Resistant Organisms: None Reported, MRSA Date of last positivie culture/infection: 2010 MDRO Source:: inner left thigh Past Surgical History: Ear Surgery, Tonsillectomy Past Anesthesia/Blood Transfusion Reactions: No Reported Reaction Past Psychological History: No Psychological Hx Reported Smoking Status: Never smoker Past Alcohol Use History: None Reported Past Drug Use History: None Reported - Past Family History Father Family Medical History: Diabetes Mellitus General Exam Limitations: no limitations General appearance: alert, in no apparent distress Head exam: Present: atraumatic, normocephalic, normal inspection Respiratory exam: Present: normal lung sounds bilaterally. Absent: respiratory distress, wheezes, rales, rhonchi, stridor Cardiovascular Exam: Present: normal rhythm, tachycardia, normal heart sounds. Absent: systolic murmur, diastolic murmur, rubs, gallop, clicks GI/Abdominal exam: Present: soft, normal bowel sounds. Absent: distended, tenderness, guarding, rebound, rigid Back exam: Absent: CVA tenderness (R), CVA tenderness (L) Neurological exam: Present: alert, oriented X3, CN II-XII intact Skin exam: Present: warm, dry, intact, normal color. Absent: rash Course Vital Signs 03/15/17 03/15/17 17:38 19:12 Temperature 98.2 F Pulse Rate 119 H 95 Respiratory 20 18 Rate Blood Pressure 138/63 126/55 O2 Sat by Pulse 100 100 Oximetry Medical Decision Making - Medical Decision Making 26-year-old female presented emergency department nausea vomiting diarrhea. Patient was concerned that she is . Patient lab work is essentially unremarkable. Patient is improved after antiemetics and fluids. Patient be discharged at this time return parameters were discussed. - Lab Data Result diagrams: 03/15/17 18:44 03/15/17 18:44 Lab Results 03/15/17 03/15/17 03/15/17 Range/Units 18:44 18:44 19:07 WBC 8.3 (3.8-10.6) k/uL RBC 4.38 (3.80-5.40) m/uL Hgb 13.1 (11.4-16.0) gm/dL Hct 42.2 (34.0-46.0) % MCV 96.3 (80.0-100.0) fL MCH 30.0 (25.0-35.0) pg MCHC 31.1 (31.0-37.0) g/dL RDW 15.1 (11.5-15.5) % Plt Count 268 (150-450) k/uL Neutrophils % 75 % Lymphocytes % 15 % Monocytes % 6 % Eosinophils % 3 % Basophils % 1 % Neutrophils # 6.2 (1.3-7.7) k/uL Lymphocytes # 1.3 (1.0-4.8) k/uL Monocytes # 0.5 (0-1.0) k/uL Eosinophils # 0.2 (0-0.7) k/uL Basophils # 0.0 (0-0.2) k/uL Sodium 135 L (137-145) mmol/L Potassium 4.2 (3.5-5.1) mmol/L Chloride 104 (98-107) mmol/L Carbon Dioxide 21 L (22-30) mmol/L Anion Gap 10 mmol/L BUN 11 (7-17) mg/dL Creatinine 0.60 (0.52-1.04) mg/dL Est GFR (MDRD) Af Amer >60 (>60 ml/min/1.73 sqM) Est GFR (MDRD) Non-Af >60 (>60 ml/min/1.73 sqM) Glucose 83 (74-99) mg/dL Calcium 9.7 (8.4-10.2) mg/dL Total Bilirubin 0.7 (0.2-1.3) mg/dL AST 18 (14-36) U/L ALT 21 (9-52) U/L Alkaline Phosphatase 54 (38-126) U/L Total Protein 6.8 (6.3-8.2) g/dL Albumin 3.7 (3.5-5.0) g/dL Amylase 88 (30-110) U/L Lipase 40 (23-300) U/L Urine Color Yellow Urine Appearance Cloudy H (Clear) Urine pH 6.0 (5.0-8.0) Ur Specific [place] 1.024 (1.001-1.035) Urine Protein Trace H (Negative) Urine Glucose (UA) Negative (Negative) Urine Blood Negative (Negative) Urine Nitrite Negative (Negative) Urine Bilirubin Negative (Negative) Urine Urobilinogen <2.0 (<2.0) mg/dL Ur Leukocyte Esterase Negative (Negative) Urine RBC 2 (0-5) /hpf Urine WBC 2 (0-5) /hpf Ur Squamous Epith Cells 15 H (0-4) /hpf Urine Mucus Occasional H (None) /hpf Disposition Clinical Impression: Gastroenteritis Disposition: HOME SELF-CARE Condition: Stable Instructions: Acute Nausea and Vomiting (ED) Additional Instructions: Please return to the Emergency Department if symptoms worsen or any other concerns. Prescriptions: Metoclopramide [Reglan] 10 mg PO TID PRN #7 tab PRN Reason: GERD Referrals: Leonard Lee DO [Doctor of Osteopathic Medicine] - 1-2 days Time of Disposition: 19:29
[2017-03-15 18:58] LABS: Basophils % (A) 1 %; Eosinophils # (A) 0.2 k/uL (0-0.7); Eosinophils % (A) 3 %; HCT 42.2 % (34.0-46.0); HGB 13.1 gm/dL (11.4-16.0); Lymphocytes # (A) 1.3 k/uL (1.0-4.8); Lymphocytes % (A) 15 %; MCHC 31.1 g/dL (31.0-37.0); MCV 96.3 fL (80.0-100.0); Mean Platelet Volume 7.7; Monocytes # (A) 0.5 k/uL (0-1.0); Monocytes % (A) 6 %; Neutrophils # (A) 6.2 k/uL (1.3-7.7); Neutrophils % (A) 75 %; Platelet Count 268 k/uL (150-450); RBC 4.38 m/uL (3.80-5.40); RDW 15.1 % (11.5-15.5); WBC 8.3 k/uL (3.8-10.6)
[2017-03-15 19:06] LABS: ALT 21 U/L (9-52); AST 18 U/L (14-36); Albumin 3.7 g/dL (3.5-5.0); Alkaline Phosphatase 54 U/L (38-126); Amylase 88 U/L (30-110); Anion Gap 10 mmol/L; Blood Urea Nitrogen 11 mg/dL (7-17); Calcium 9.7 mg/dL (8.4-10.2); Carbon Dioxide 21 mmol/L (22-30); Chloride 104 mmol/L (98-107); Glucose 83 mg/dL (74-99); Lipase 40 U/L (23-300); Potassium 4.2 mmol/L (3.5-5.1); Sodium 135 mmol/L (137-145); Total Bilirubin 0.7 mg/dL (0.2-1.3); Total Protein 6.8 g/dL (6.3-8.2)
[2017-03-15 19:27] LABS: Appearance,Urine Cloudy (Clear); Bilirubin,Urine Negative (Negative); Blood,Urine Negative (Negative); Color,Urine Yellow; Glucose,Urine (UA) Negative (Negative); Ketones,Urine 2+ (Negative); Leukocyte Esterase,Urine Negative (Negative); Mucus,Urine Occasional /hpf; Nitrite,Urine Negative (Negative); Protein,Urine Trace (Negative); RBC,Urine 2 /hpf (0-5); Specific Gravity,Urine 1.024 (1.001-1.035); Squamous Epithelial Cell,Urine 15 /hpf (0-4); Urobilinogen,Urine <2.0 mg/dL (<2.0); WBC,Urine 2 /hpf (0-5)
[2017-03-15 20:11] VITALS: BP 104/55; PULSE 92; RESP 16
== END 2017-03-15 20:11 | disposition home or self-care (01) ==
LOC: EC 17:36
DX: O99.612 Diseases of the digestive system complicating pregnancy, second trimester (principal); K52.9 Noninfective gastroenteritis and colitis, unspecified; O99.89 Other specified diseases and conditions complicating pregnancy, childbirth and the puerperium; R00.0 Tachycardia, unspecified; Z86.14 Personal history of Methicillin resistant Staphylococcus aureus infection; Z3A.17 17 weeks gestation of pregnancy; Z79.899 Other long term (current) drug therapy
CPT/HCPCS: 36415; 80053; 82150; 83690; 85025; 81001; 99284; 96374; 96361; J2765

== ENCOUNTER 2017-05-22 22:14 | Emergency (ER) | payer OTHER ==
[2017-05-22 22:27] VITALS: RESP 18
--- NOTE | 2017-05-22 22:43 | ED ---
Fall HPI - General Chief Complaint: Fall Stated Complaint: Fall, Pgt Time Seen by Provider: 05/22/17 22:31 Source: patient, RN notes reviewed, old records reviewed Mode of arrival: ambulatory - History of Present Illness Initial Comments: This is patient is a 26-year-old female chief complaint of fall down 4 stairs earlier today. She slipped on ice and bounced between the 4 stairs on her lower back. She is currently 26 weeks . This is a female. She states that she follows up with Dr. Helm. She reports that since the fall she fell she can feel her baby move as much. Patient states that she has some more pain down the left leg but denies any pain with range of motion. Patient per that she has normal sensation. She was able to ambulate after the injury. She has not taken anything for pain at this time. She denies any saddle anesthesia.Patient denies any recent fever, chills, shortness of breath, chest pain, abdominal pain, nausea vomiting, numbness or tingling, dysuria or hematuria, constipation or diarrhea, headaches or visual changes, or any other current symptoms - Related Data Home Medications Medication Instructions Recorded Confirmed Rgj-Wbik-Cgmkz Acid 1 cap PO DAILY 02/03/17 03/15/17 [-U Capsule (formulary)] Previous Rx's Medication Instructions Recorded Metoclopramide [Reglan] 10 mg PO TID PRN #7 tab 03/15/17 Allergies Allergy/AdvReac Type Severity Reaction Status Date / Time No Known Allergies Allergy Verified 05/22/17 22:27 Review of Systems ROS Statement: Those systems with pertinent positive or pertinent negative responses have been documented in the HPI. ROS Other: All systems not noted in ROS Statement are negative. Past Medical History Past Medical History: Pneumonia History of Any Multi-Drug Resistant Organisms: None Reported, MRSA Date of last positivie culture/infection: 2010 MDRO Source:: inner left thigh Past Surgical History: Ear Surgery, Tonsillectomy Past Anesthesia/Blood Transfusion Reactions: No Reported Reaction Past Psychological History: No Psychological Hx Reported Smoking Status: Never smoker Past Alcohol Use History: None Reported Past Drug Use History: None Reported - Past Family History Father Family Medical History: Diabetes Mellitus General Exam - General Exam Comments Initial Comments: This is a 26-year-old female. No acute distress. Limitations: no limitations General appearance: alert, in no apparent distress Head exam: Present: atraumatic, normocephalic, normal inspection Eye exam: Present: normal appearance, PERRL, EOMI. Absent: scleral icterus, conjunctival injection, periorbital swelling ENT exam: Present: normal exam, mucous membranes moist Neck exam: Present: normal inspection. Absent: tenderness, meningismus, lymphadenopathy Respiratory exam: Present: normal lung sounds bilaterally. Absent: respiratory distress, wheezes, rales, rhonchi, stridor Cardiovascular Exam: Present: regular rate, normal rhythm, normal heart sounds. Absent: systolic murmur, diastolic murmur, rubs, gallop, clicks GI/Abdominal exam: Present: soft, normal bowel sounds, other (protruberant abdomen with 26 weeks gestation. ). Absent: distended, tenderness, guarding, rebound, rigid Extremities exam: Present: normal inspection, full ROM, normal capillary refill. Absent: tenderness, pedal edema, joint swelling, calf tenderness Back exam: Present: normal inspection, tenderness (Patient is some tenderness over the lumbar paraspinal muscles. No significant bruising noted.), paraspinal tenderness (Lumbar paraspinal tenderness) Neurological exam: Present: alert, oriented X3, CN II-XII intact Psychiatric exam: Present: normal affect, normal mood Skin exam: Present: warm, dry, intact, normal color. Absent: rash Course Vital Signs 05/22/17 22:24 Temperature 98.3 F Pulse Rate 92 Respiratory 18 Rate Blood Pressure 117/66 O2 Sat by Pulse 100 Oximetry Medical Decision Making - Medical Decision Making This patient is 26-year-old female presents today with chief complaint of fall down 4 stairs which is currently 26 weeks . She states that she's been having some lower abdominal pain and back pain radiating towards the front of her abdomen. She states she can feel her baby move as much. At this time patient has no significant bruising. She doesn't tenderness over the lumbar paraspinal muscles. She picked the [place] pain occasionally radiates down the left leg but has full range of motion. Normal sensation and capillary refill and pulses. Patient informed week without to perform x-rays due to the mechanism of injury for her as well as . Patient agrees to wait x- rays this time. Discussed that I want her to be evaluated by a DIPLOMA MAKER and monitoring. This mL. Patient to go upstairs for monitoring. Disposition Clinical Impression: Fall, Muscle contusion Disposition: HOME SELF-CARE Condition: Good Instructions: Fall Prevention for Older Adults (ED) Additional Instructions: Patient is advised to go directly to OB floor for monitoring. Referrals: None,Stated [Primary Care Provider] - 1-2 days Leonard Lee DO [Doctor of Osteopathic Medicine] - 1-2 days Time of Disposition: 22:42
[2017-05-22 23:13] VITALS: BP 125/87; PULSE 86; TEMP 97
--- NOTE | 2017-05-24 04:37 | CDI ---
Documentation Clarification OP Dear Margarita ROCHA PA-C, PAC Please do addendum to ED report for specific muscle contusion site. Thank you, Mel Mcbride Pack Train Driver If you have any questions, please contact [employer] at [phone] [facility]
== END 2017-05-22 23:15 | disposition home or self-care (01) ==
LOC: EC 22:14
DX: O9A.212 Injury, poisoning and certain other consequences of external causes complicating pregnancy, second trimester (principal); S30.0XXA Contusion of lower back and pelvis, initial encounter; Z86.14 Personal history of Methicillin resistant Staphylococcus aureus infection; Z3A.26 26 weeks gestation of pregnancy; W00.1XXA Fall from stairs and steps due to ice and snow, initial encounter; Y93.01 Activity, walking, marching and hiking
CPT/HCPCS: 99283

== ENCOUNTER → 2017-05-22 | Outpatient (CLI) | payer OTHER ==
[2017-05-22 23:48] VITALS: BP 119/58; PULSE 77; RESP 18; TEMP 97.6
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
== END | disposition home or self-care (01) ==
LOC: FBPOP 23:19
PROVIDERS: ATTEND Obstetrics & Gynecology
DX: O9A.212 Injury, poisoning and certain other consequences of external causes complicating pregnancy, second trimester (principal); W10.8XXA Fall (on) (from) other stairs and steps, initial encounter; Z3A.26 26 weeks gestation of pregnancy
CPT/HCPCS: 99213

== ENCOUNTER 2017-07-19 17:35 | Outpatient (CLI) | payer OTHER ==
[2017-07-19 18:28] VITALS: BP 115/64; PULSE 88; RESP 18; TEMP 97.8
--- NOTE | 2017-07-21 12:16 | P.MSEPDOC ---
Presenting Problems - Arrival Data Date of Arrival on Unit: 07/19/17 Time of Arrival on Unit: 17:34 Mode of Transport: Ambulatory - Complaint OB-Reason for Admission/Chief Complaint: Pain Comment: lower back, pelvic pressure Medical History - Information : 3 Para: 2 Number of Living Children: 2 - Gestational Age Gestational Age by EMILIANA (wks/days): 34 Weeks and 6 Days Review of Systems - Review of Systems Constitutional: No problems Breast: No problems ENT: No problems Cardiovascular: No problems Respiratory: No problems Gastrointestinal: No problems Genitourinary: No problems Musculoskeletal: No problems Neurological: No problems Skin: No problems Vital Signs - Temperature Temperature: 97.8 F Temperature Source: Temporal Artery Scan - Pulse Right Sitting Brachial Pulse Rate: 88 Pulse Assessment Method: Automatic Cuff - Respirations Respiratory Rate: 18 Oxygen Delivery Method: Room Air O2 Sat by Pulse Oximetry: 99 - Blood Pressure Right Arm Sitting Blood Pressure: 115/64 Blood Pressure Mean: 81 Blood Pressure Source: Automatic Cuff Medical Screen Scoring (Pre) - Cervical Exam Dilation: 0 cm = 0 Membranes: Intact - Uterine Contractions Frequency: N/A Duration: N/A Intensity: N/A - Maternal Vital Signs Maternal Temperature: N/A Maternal Blood Pressure: N/A Signs of Preeclampsia: N/A Maternal Respirations: N/A - Pain Assessment Pain Location and Character: Lower, Back, Pelvic Pain Scale Used: Numeric (1 - 10) Pain Intensity: 7 Pain Management Goal: 0 Pain Description: Aching, Cramping Pain Radiation Location: 0 Pain Frequency: Intermittent Pain Duration: 8 Pain Duration Units: Hours Pain Behavior: None Exhibited Effects of Pain: 0 Pain Aggravating Factors: Activity Non-Pharmacological Interventions: Inactivity, Position/Reposition - Maternal Trauma Maternal Trauma: N/A - Assessment Baseline FHR: 125 Heart Rate - NICHD Category: Category I (Normal) = 0 NST: Reactive Position: N/A Station: N/A - Total Score Total Score (Pre): 0 - Level of Risk Level of Risk: Low (0-5) Physician Notification (Pre) - Physician Notified Physician Notified Date: 07/19/17 Physician Notified Time: 18:00 Spoke With: dr yamila Obrien Order Received: Yes - Notification Comment Comment: orders for discharge home Disposition - Disposition OB Disposition: Discharge to home Discharge Date: 07/19/17 Discharge Time: 18:15 I agree with the RN Medical Screening Exam: Yes Risk & Benefit of care provided described in d/c instruction: Yes Diagnosis: FALSE LABOR BEFORE 37 COMPLETED WEEKS OF GEST, THIRD TRI
== END 2017-07-19 18:15 | disposition home or self-care (01) ==
LOC: FBPOP 17:35
PROVIDERS: ATTEND Obstetrics & Gynecology
DX: O47.03 False labor before 37 completed weeks of gestation, third trimester (principal); Z3A.34 34 weeks gestation of pregnancy
CPT/HCPCS: 59025; G0463; 99213

== ENCOUNTER 2017-08-05 19:19 | Outpatient (CLI) | payer OTHER ==
[2017-08-05 19:49] VITALS: BP 119/67; PULSE 93; RESP 18; TEMP 97.9
--- NOTE | 2017-08-07 18:27 | P.MSEPDOC ---
Presenting Problems - Arrival Data Date of Arrival on Unit: 08/04/17 Time of Arrival on Unit: 05:28 Mode of Transport: Wheelchair - Complaint OB-Reason for Admission/Chief Complaint: Pain Comment: contractions that started 10 min before she got here Medical History - Information : 3 Para: 2 Term: 2 : 0 Abortions: Spontaneous or Elective: 0 Number of Living Children: 2 - Gestational Age Gestational Age by EMILIANA (wks/days): 37 Weeks and 2 Days Review of Systems - Review of Systems Constitutional: No problems Breast: No problems ENT: No problems Cardiovascular: No problems Respiratory: No problems Gastrointestinal: No problems Genitourinary: No problems Musculoskeletal: No problems Neurological: No problems Skin: No problems Vital Signs - Temperature Temperature: 97.9 F Temperature Source: Temporal Artery Scan - Pulse Right Brachial Pulse Rate: 93 Pulse Assessment Method: Automatic Cuff - Respirations Respiratory Rate: 18 Oxygen Delivery Method: Room Air - Blood Pressure Right Arm Blood Pressure: 119/67 Blood Pressure Mean: 84 Blood Pressure Source: Automatic Cuff Medical Screen Scoring (Pre) - Cervical Exam Dilation: 1-3 cm = 1 Effacement: More than 50% = 2 Membranes: Intact - Uterine Contractions Frequency: > 5 minutes apart = 1 Duration: N/A Intensity: N/A - Maternal Vital Signs Maternal Temperature: N/A Maternal Blood Pressure: N/A Signs of Preeclampsia: N/A Maternal Respirations: N/A - Pain Assessment Pain Location and Character: Abdomen Pain Scale Used: Numeric (1 - 10) Pain Intensity: 7 Pain Description: *Acute, Cramping, Tightness Pain Radiation Location: none Pain Frequency: Intermittent Pain Duration: 10 Pain Duration Units: Minutes Pain Behavior: None Exhibited Pain Aggravating Factors: Contractions - Maternal Trauma Maternal Trauma: N/A - Assessment Baseline FHR: 150 Heart Rate - NICHD Category: Category I (Normal) = 0 NST: Reactive Position: N/A - Total Score Total Score (Pre): 4 - Level of Risk Level of Risk: Low (0-5) Physician Notification (Pre) - Physician Notified Physician Notified Date: 08/05/17 Physician Notified Time: 20:19 Physician/Practitioner Notifed:: Dr. Lee Spoke With: Dr. Lee - Notification Comment Comment: discharge home, follow up in office on at scheduled appt Disposition - Disposition OB Disposition: Triage, Discharge to home, Written follow up instructions reviewed Discharge Date: 08/05/17 Discharge Time: 20:28 I agree with the RN Medical Screening Exam: Yes Risk & Benefit of care provided described in d/c instruction: Yes Diagnosis: FALSE LABOR AT OR AFTER 37 COMPLETED WEEKS OF GESTATION
== END 2017-08-05 20:19 | disposition home or self-care (01) ==
LOC: FBPOP 19:19
PROVIDERS: ATTEND Obstetrics & Gynecology
DX: O47.1 False labor at or after 37 completed weeks of gestation (principal); Z3A.37 37 weeks gestation of pregnancy
CPT/HCPCS: 59025; G0463; 99213

== ENCOUNTER 2017-08-20 06:00 | Inpatient (IN) | payer OTHER ==
[2017-08-20] MEDS ORDERED: TERBUTALINE 1 MG/ML VIAL SQ PRN (06:47)
[2017-08-20] MEDS ORDERED: LIDOCAINE 1% (PF) 10 MG/ML (30 ML SDV) SQ PRN (06:47)
[2017-08-20] MEDS ORDERED: CARBOPROST TROMETHAMINE 250 MCG/ML 1 ML AMP IM PRN (06:47)
[2017-08-20] MEDS ORDERED: METHYLERGONOVINE 0.2 MG/ML 1 ML AMP IM PRN (06:47)
[2017-08-20] MEDS ORDERED: OXYTOCIN 10 UNIT/ML 1 ML VIAL IM PRN (06:47)
[2017-08-20] MEDS: LACTATED RINGERS 1,000 ML IV SCH ×2 (06:55→11:34)
[2017-08-20] MEDS ORDERED: OXYTOCIN 20 UNITS/1000 ML NS 1,000 ML IV SCH (07:00)
[2017-08-20 07:08] LABS: Basophils # (A) 0.1 k/uL (0-0.2); Basophils % (A) 1 %; Eosinophils # (A) 0.3 k/uL (0-0.7); Eosinophils % (A) 3 %; HCT 34.3 % (34.0-46.0); HGB 11.5 gm/dL (11.4-16.0); Lymphocytes # (A) 2.7 k/uL (1.0-4.8); Lymphocytes % (A) 31 %; MCHC 33.6 g/dL (31.0-37.0); MCV 92.3 fL (80.0-100.0); Mean Platelet Volume 7.5; Monocytes # (A) 0.7 k/uL (0-1.0); Monocytes % (A) 9 %; Neutrophils # (A) 4.6 k/uL (1.3-7.7); Neutrophils % (A) 53 %; Platelet Count 235 k/uL (150-450); RBC 3.72 m/uL (3.80-5.40); RDW 13.4 % (11.5-15.5); WBC 8.7 k/uL (3.8-10.6)
[2017-08-20] MEDS ORDERED: SODIUM CHLORIDE 0.9% 100 ML BAG ONE (12:05)
[2017-08-20] MEDS ORDERED: fentaNYL (PF) 50 MCG/ML 5 ML AMP ONE (12:05)
[2017-08-20] MEDS ORDERED: BUPIVACAINE (PF) 0.25% 30 ML VIAL ONE (12:05)
[2017-08-20] MEDS ORDERED: ROPIVACAINE 100 MG, fentaNYL (PF) 200 MCG in SODIUM CHLORIDE 0.9% 76 ML EPIDURAL ONE (12:56)
[2017-08-20] MEDS ORDERED: ZOLPIDEM 5 MG TAB PO PRN (15:20)
[2017-08-20] MEDS ORDERED: SIMETHICONE 80 MG CHEWABLE PO PRN (15:20)
[2017-08-20] MEDS ORDERED: ACETAMINOPHEN TAB 325 MG TAB PO PRN (15:20)
[2017-08-20] MEDS ORDERED: diphenhydrAMINE 50 MG CAP PO PRN (15:20)
[2017-08-20] MEDS ORDERED: HYDROCORTISONE 2.5% RECTAL CREAM 30 GM TUBE RECTAL PRN (15:20)
[2017-08-20] MEDS ORDERED: WITCH HAZEL 1 EACH MED..PAD TOPICAL PRN (15:20)
[2017-08-20] MEDS ORDERED: BENZOCAINE/MENTHOL SPRAY 1 GM/SPRAY AEROSOL TOPICAL PRN (15:20)
[2017-08-20] MEDS ORDERED: diphenhydrAMINE 25 MG CAP PO PRN (15:20)
[2017-08-20] MEDS ORDERED: LANOLIN CREAM 5 GM TUBE TOPICAL PRN (15:20)
[2017-08-20] MEDS ORDERED: diphenhydrAMINE 50 MG/ML 1 ML VIAL IVP PRN ×2 (15:20)
--- NOTE | 2017-08-20 15:22 | P.HPOB ---
History of Present Illness H&P Date: 08/20/17 Chief Complaint: Intrauterine at term: Induction of labor Patient is a 27-year-old female G3 3 P2 at 39 weeks gestation arise for induction of labor. Her course was, K by a fall down the stairs at approximately 28 weeks. However she recovered well from this and has had no problems since. She was dilated to 2 cm 70% effaced -2 station artificial rupture membranes was performed and clear fluid is noted. heart tones in the 130s 0s and are reactive. Risks and benefits of induction of labor were discussed with patient in detail and all questions are answered for her prior to initiation of induction. Past Medical History Past Medical History: Pneumonia History of Any Multi-Drug Resistant Organisms: MRSA Date of last positivie culture/infection: 2010 MDRO Source:: inner left thigh Past Surgical History: Ear Surgery, Tonsillectomy Past Anesthesia/Blood Transfusion Reactions: No Reported Reaction Smoking Status: Never smoker - Past Family History Father Family Medical History: Diabetes Mellitus Medications and Allergies Home Medications Medication Instructions Recorded Confirmed Type Llo-Rvzh-Evvif Acid 1 cap PO DAILY 02/03/17 08/05/17 History [-U Capsule (formulary)] Allergies Allergy/AdvReac Type Severity Reaction Status Date / Time No Known Allergies Allergy Verified 08/20/17 06:46 Exam Osteopathic Statement: *. No significant issues noted on an osteopathic structural exam other than those noted in the History and Physical/Consult. - Vital Signs Vital signs: Intake and Output 08/20/17 08/20/17 08/20/17 06:59 14:59 22:59 Other: Weight 102.965 kg - OBG Physical Exam Breast: both: normal (no masses) Abdomen: bowel sounds normal, no diffuse tenderness, no bruit present, no guarding noted, no hepatomegaly, no splenomegaly, no mass Vulva: both: normal Vagina: normal moisture, no discharge Cervix: no lesion, no discharge Uterus: normal size, normal contour Adnexa: both: normal Anus/Rectum: normal perianal skin, no rectal mass, no hemorrhoids, heme negative Results Result Diagrams: 08/20/17 07:00 Abnormal Lab Results - Last 24 Hours (Table) 08/20/17 Range/Units 07:00 RBC 3.72 L (3.80-5.40) m/uL
[2017-08-20] MEDS: SENNOSIDES-DOCUSATE SODIUM 1 EACH TAB PO SCH (19:46)
[2017-08-20] MEDS: IBUPROFEN 600 MG TAB PO PRN (22:56)
[2017-08-21] MEDS ORDERED: HYDROmorphone 2 MG TAB PO STA (02:03)
[2017-08-21] MEDS: HYDROcodone/APAP 7.5-325MG 1 EACH TAB PO PRN ×3 (04:28→19:19)
[2017-08-21] MEDS: SENNOSIDES-DOCUSATE SODIUM 1 EACH TAB PO SCH ×2 (08:04→19:20)
[2017-08-21] MEDS: IBUPROFEN 600 MG TAB PO PRN ×2 (08:04→15:42)
--- NOTE | 2017-08-21 08:54 | P.PNOBGVD ---
Subjective - Subjective Principal diagnosis: day 1 Interval history: Overall patient is doing well. She is able to ambulate and void. However she does complain of significant abdominal pain and cramping and on exam her uterus well firm just below the umbilicus does feel like it is a little larger than I would expect at this point, therefore we'll plan to continue current care with her and plan discharged home tomorrow assuming that her bleeding remains light and her uterus maintains its firmness. I did discuss with her I concerns about subinvolution of the uterus and the desire to keep her today to make sure that she has a have any bleeding and while she is up moving around hopefully she'll pass a large clot or we may end up needing to give her something if she does have some heavier bleeding to hopefully get her uterus to completely involute. Patient reports: Reports appetite normal, Reports voiding normally, Reports pain well controlled, Reports ambulating normally : doing well Objective - Latest Vital Signs Latest vital signs: Vital Signs Temp Pulse Resp BP Pulse Ox 08/21/17 08:00 97.7 F 76 18 114/71 100 08/20/17 23:30 98.1 F 80 16 130/74 08/20/17 19:40 98.7 F 88 16 122/64 08/20/17 17:29 79 16 127/77 08/20/17 16:59 70 14 105/70 08/20/17 16:29 75 16 139/81 08/20/17 16:14 72 16 149/82 08/20/17 15:57 71 16 120/70 08/20/17 15:43 77 14 114/60 08/20/17 15:29 96.7 F L 77 14 109/55 Intake and Output 08/20/17 08/21/17 08/21/17 22:59 06:59 14:59 Intake Total 2200 Output Total 150 Balance 2049 Intake: IV 2200 Lactated Ringers 1,000 ml 2200 @ 125 mls/hr IV .Q8H OMAR Rx#:[id number] Output: Estimated Blood Loss 150 Other: # Voids 1 1 1 - Exam Lungs: bilateral: normal Chest: Normal S1, Normal S2 Extremities: Present: normal Abdomen: Present: normal appearance, soft Uterus: Present: bogginess Comments: Somewhat boggy uterus below the umbilicus it is still overall firm but as previously mentioned slightly larger than expected this point. Her bleeding however is light at this time.
[2017-08-22] MEDS: IBUPROFEN 600 MG TAB PO PRN (07:30)
[2017-08-22] MEDS: SENNOSIDES-DOCUSATE SODIUM 1 EACH TAB PO SCH (08:00)
--- NOTE | 2017-08-22 08:54 | P.DS ---
Providers Date of admission: 08/20/17 06:35 Expected date of discharge: 08/22/17 Attending physician: Leonard Lee Primary care physician: Stated None Hospital Course: day 2. Patient is seen and evaluated doing much better from over yesterday. Last night she states she passed 2 relatively large clots and her uterus is now firm and well below the umbilicus her lochia is also reported light this time. The cramping back pain is essentially resolved. We'll plan discharged home today with prescription for Motrin for pain. Vital signs are otherwise stable and she is afebrile. Heart regular, lungs clear, extremities without pain. Assessment day 2. Plan discharged home follow up with me in 6 weeks. Patient Condition at Discharge: Good Plan - Discharge Summary New Discharge Prescriptions: New Ibuprofen [Motrin] 600 mg PO Q6HR PRN #30 tab PRN Reason: Pain No Action Pmy-Jrsh-Oqevv Acid [-U Capsule (formulary)] 1 cap PO DAILY Discharge Medication List Dyt-Tgme-Mujhl Acid [-U Capsule (formulary)] 1 cap PO DAILY [History] Ibuprofen [Motrin] 600 mg PO Q6HR PRN #30 tab 08/22/17 [Rx] Follow up Appointment(s)/Referral(s): Leonard Lee DO [Doctor of Osteopathic Medicine] - 6 Weeks Activity/Diet/Wound Care/Special Instructions: No heavy lifting, limit stairs and driving, and pelvic rest. If any high temperatures, heavy bleeding, or severe pain call my office Discharge Disposition: HOME SELF-CARE
[2017-08-22 11:27] VITALS: BP 126/67; PULSE 71; RESP 18; TEMP 97.9
--- NOTE | 2017-08-28 16:42 | P.PROBDLV ---
Vaginal Delivery Note - . Vaginal Delivery Note: Patient progressed to complete and pushing with spontaneous vaginal delivery of a viable baby over an intact perineum. Falling deliver the head interim posterior shoulders were delivered gentle downward and upward traction followed by the remainder the baby. Mouth and nares were then bulb suctioned and baby was placed on mother's abdomen where the umbilical cord was clamped cut usual fashion. Placenta was then delivered intact Pitocin was added to the IV. Both mother and baby were stable following delivery.
== END 2017-08-22 13:38 | disposition home or self-care (01) | DRG 775 ==
LOC: 4FBP 06:35
PROVIDERS: ADMIT Obstetrics & Gynecology; ATTEND Obstetrics & Gynecology
PROC: 10907ZC Drainage of Amniotic Fluid, Therapeutic from Products of Conception, Via Natural or Artificial Opening (ICD-10-PCS; principal; 2017-08-20)
PROC: 00HU33Z Insertion of Infusion Device into Spinal Canal, Percutaneous Approach (ICD-10-PCS; principal; 2017-08-20)
PROC: 10E0XZZ Delivery of Products of Conception, External Approach (ICD-10-PCS; principal; 2017-08-20)
PROC: 3E0R3NZ Introduction of Analgesics, Hypnotics, Sedatives into Spinal Canal, Percutaneous Approach (ICD-10-PCS; principal; 2017-08-20)
DX: O80 Encounter for full-term uncomplicated delivery (principal); Z37.0 Single live birth; Z3A.39 39 weeks gestation of pregnancy; Z83.3 Family history of diabetes mellitus
CPT/HCPCS: 85025

== ENCOUNTER 2017-10-22 05:38 | Day surgery (SDC) | payer OTHER ==
[2017-10-14 14:46] VITALS: BMI 28.5
--- NOTE | 2017-10-21 16:35 | P.HPOB ---
History of Present Illness H&P Date: 10/21/17 Chief Complaint: Family planning Patient is a 27-year-old female who is completed her family planning and desires permanent sterilization. Risks/benefits/alternatives to this procedure were discussed with patient in detail and all questions were answered for her prior to proceeding to the operating room. She was 3 para 3 and is otherwise in good health. We'll plan laparoscopic tubal occlusion with Filshie clips. Past Medical History Past Medical History: Pneumonia History of Any Multi-Drug Resistant Organisms: MRSA Date of last positivie culture/infection: 2010 MDRO Source:: inner left thigh Past Surgical History: Ear Surgery, Tonsillectomy Past Anesthesia/Blood Transfusion Reactions: No Reported Reaction Past Psychological History: No Psychological Hx Reported Smoking Status: Never smoker Past Alcohol Use History: None Reported Past Drug Use History: None Reported - Past Family History Father Family Medical History: Diabetes Mellitus Medications and Allergies Home Medications Medication Instructions Recorded Confirmed Type Dgy-Issb-Peurb Acid 1 cap PO DAILY 02/03/17 10/14/17 History [-U Capsule (formulary)] Allergies Allergy/AdvReac Type Severity Reaction Status Date / Time No Known Allergies Allergy Verified 10/14/17 14:37 Exam Osteopathic Statement: *. No significant issues noted on an osteopathic structural exam other than those noted in the History and Physical/Consult. - OBG Physical Exam Breast: both: normal (no masses) Abdomen: bowel sounds normal, no diffuse tenderness, no bruit present, no guarding noted, no hepatomegaly, no splenomegaly, no mass Vulva: both: normal Vagina: normal moisture, no discharge Cervix: no lesion, no discharge Uterus: normal size, normal contour Adnexa: both: normal Anus/Rectum: normal perianal skin, no rectal mass, no hemorrhoids, heme negative
[~2017-10-22 05:38] MED LIST: DEXAMETHASONE SOD PHOSPHATE 10 MG/ML 1 ML VIAL IV ONE; LACTATED RINGERS 1,000 ML IV SCH; LIDOCAINE 1% 20 ML VIAL (10MG/ML) FOR IV START INTRADERMA PRN; MIDAZOLAM 2 MG/2 ML VIAL IV PRN; ONDANSETRON 4 MG/2 ML VIAL IVP ONE; Pre Op ABX Message 1 EACH MISC MISCELLANE ONE; fentaNYL (PF) 50 MCG/ML 2 ML AMP IV PRN
[2017-10-22] MEDS ORDERED: ROPIVACAINE 5 MG/ML 30 ML VIAL MISCELLANE ONE (07:22)
[2017-10-22] MEDS ORDERED: GLYCOPYRROLATE 0.2 MG/ML 2 ML VIAL ONE (07:30)
[2017-10-22] MEDS ORDERED: ROCURONIUM BROMIDE 10 MG/ML 10 ML VIAL IV ONE (07:30)
[2017-10-22] MEDS ORDERED: LIDOCAINE 1% INJ 10MG/ML (20 ML MDV) ONE (07:30)
[2017-10-22] MEDS ORDERED: KETOROLAC 30 MG/ML 1 ML VIAL ONE (07:30)
[2017-10-22] MEDS ORDERED: NEOSTIGMINE 1 MG/ML 10 ML VIAL ONE (07:30)
[2017-10-22] MEDS ORDERED: PROPOFOL 10 MG/ML 20 ML VIAL IV ONE (07:30)
[2017-10-22] MEDS ORDERED: MIDAZOLAM 2 MG/2 ML VIAL ONE (07:30)
[2017-10-22] MEDS ORDERED: ACETAMINOPHEN IV (For NPO) 1,000 MG/100 ML VIAL ONE (07:30)
[2017-10-22] MEDS ORDERED: SUCCINYLCHOLINE CHLORIDE 100 MG/5 ML SYR IV ONE (07:30)
[2017-10-22] MEDS ORDERED: fentaNYL (PF) 50 MCG/ML 2 ML AMP ONE (07:30)
--- NOTE | 2017-10-22 08:10 | P.OP ---
Date of Procedure: 10/22/17 Preoperative Diagnosis: Family planning Postoperative Diagnosis: Same Procedure(s) Performed: Laparoscopic tubal with Filshie clips Anesthesia: JALYN Surgeon: Leonard Lee Estimated Blood Loss (ml): 5 Urine output (ml): 50 Pathology: none sent Condition: stable Disposition: same day Operative Findings: Normal female pelvic anatomy Description of Procedure: Patient was taken to the operating suite where a general anesthetic was found be adequate. She was prepped and draped in the normal sterile fashion and placed in the dorsal lithotomy position. Initially a speculum was inserted into the vagina and the anterior lip of the cervix was identified and grasped with a single-tooth tenaculum. It was then sounded to 10 cm and a uterine manipulator was inserted without difficulty. Tenaculum and speculum were then removed and a red rubber catheter was used to drain the bladder of urine. Once this was completed gloves were changed and attention was turned to the abdominal portion of the procedure where 2 mL of quarter percent Marcaine was injected periumbilically. Through this injected anesthetic a 5 mm skin incision was made and through this incision under direct visualization with an optical trocar and sleeve the camera was inserted. Once peritoneal placement was assured gas was allowed to fully insufflate the abdomen and patient was then placed in steep Trendelenburg position. A second 8 mm skin incision was then made 3 cm above the pubic symphysis in the midline and a port and sleeve were inserted under direct visualization. Patient was then examined of her pelvis. No gross pathology was noted therefore first the right fallopian tube than then the left fallopian tube had a Filshie clip applied 2-3 cm from uterine cornu. No bleeding is noted in the mesosalpinx therefore instruments were removed and gas was allowed to expel from the abdomen. 5 deep breaths were provided during this process. Ports were then removed and incisions were closed subcuticularly with 4-0 Vicryl. Another 6 mL of quarter percent Marcaine was then injected around these incisions. Instruments were removed from the vagina. Patient was then taken to the recovery room in stable and satisfactory condition. Sponge, lap, needle counts were all correct 2. Plan - Discharge Summary New Discharge Prescriptions: New Ibuprofen [Motrin] 600 mg PO Q6HR PRN #30 tab PRN Reason: Pain Discharge Medication List Ibuprofen [Motrin] 600 mg PO Q6HR PRN #30 tab 10/22/17 [Rx] Follow up Appointment(s)/Referral(s): Leonard Lee DO [Doctor of Osteopathic Medicine] - 2 Weeks Activity/Diet/Wound Care/Special Instructions: No heavy lifting, limit stairs and driving, and pelvic rest. If any high temperatures, heavy bleeding, or severe pain call my office Discharge Disposition: HOME SELF-CARE
[2017-10-22 08:31] VITALS: TEMP 96.8
[2017-10-22 08:47] VITALS: RESP 18
[2017-10-22] MEDS ORDERED: LACTATED RINGERS 1,000 ML IV ONE (08:54)
[2017-10-22] MEDS ORDERED: HYDROcodone/APAP 5-325MG 1 EACH TAB PO ONE (09:15)
[2017-10-22 09:34] VITALS: BP 171/86; PULSE 78
== END 2017-10-22 09:57 | disposition home or self-care (01) ==
LOC: OR 05:38
PROVIDERS: ATTEND Obstetrics & Gynecology
DX: Z30.2 Encounter for sterilization (principal); Z86.14 Personal history of Methicillin resistant Staphylococcus aureus infection
CPT/HCPCS: 81025; 58671; J2250; J1100; J2710; J2405; J2001; J3010; J1885; J2795; J0131; J0330; J2704

== ENCOUNTER 2017-12-09 16:45 | Emergency (ER) | payer OTHER ==
[2017-12-09 17:17] VITALS: BP 128/76; PULSE 96; RESP 18; TEMP 98.6
[2017-12-09] MEDS ORDERED: ACETAMINOPHEN TAB 325 MG TAB PO STA (17:42)
[2017-12-09] MEDS ORDERED: IBUPROFEN 600 MG TAB PO STA (17:42)
--- NOTE | 2017-12-09 17:43 | ED ---
Upper Extremity HPI - General Chief Complaint: Extremity Injury, Upper Stated Complaint: Wrist injury Time Seen by Provider: 12/09/17 17:39 Source: patient Mode of arrival: ambulatory Limitations: no limitations - History of Present Illness Initial Comments: 27-year-old female patient presents to the emergency department today for evaluation of right hand and wrist pain. Patient states that around midnight last night she was coming down her steps in her socks, states that she slipped and fell falling down approximately 20 steps. Patient denies hitting her head or losing consciousness. States that she did land causing a hyperextension injury to her right wrist. Patient denies any numbness or tingling to the hand. States that she is having swelling and pain to the dorsal aspect. She denies taking anything for pain. Patient denies any previous injury to the hand or wrist. Patient denies any headache, neck pain, back pain, chest pain, shortness of breath, dizziness, weakness, abdominal pain, nausea, vomiting, or difficulties with bowel movements or urination. - Related Data Previous Rx's Medication Instructions Recorded Ibuprofen [Motrin] 600 mg PO Q6HR PRN #30 tab 10/22/17 Ibuprofen [Motrin] 600 mg PO Q8HR PRN #30 tab 12/09/17 Allergies Allergy/AdvReac Type Severity Reaction Status Date / Time No Known Allergies Allergy Verified 12/09/17 17:17 Review of Systems ROS Statement: Those systems with pertinent positive or pertinent negative responses have been documented in the HPI. ROS Other: All systems not noted in ROS Statement are negative. Past Medical History Past Medical History: Pneumonia History of Any Multi-Drug Resistant Organisms: MRSA Date of last positivie culture/infection: 2010 MDRO Source:: inner left thigh Past Surgical History: Ear Surgery, Tonsillectomy Past Anesthesia/Blood Transfusion Reactions: No Reported Reaction Past Psychological History: No Psychological Hx Reported Smoking Status: Never smoker Past Alcohol Use History: None Reported Past Drug Use History: None Reported - Past Family History Father Family Medical History: Diabetes Mellitus General Exam Limitations: no limitations General appearance: alert, in no apparent distress, other (This is a well- developed, well-nourished adult female patient in no acute distress. Vital signs upon presentation are temperature 98.6F, pulse 96, respirations 18, blood pressure 128/76, pulse ox 100% on room air.) Head exam: Present: atraumatic, normocephalic, normal inspection Eye exam: Present: normal appearance, PERRL, EOMI. Absent: scleral icterus, conjunctival injection, periorbital swelling ENT exam: Present: normal exam, normal oropharynx, mucous membranes moist Neck exam: Present: normal inspection, full ROM, other (Nontender, no step-off, no deformity to firm midline palpation of the posterior cervical spine. Full range of motion without pain or limitation.). Absent: tenderness, meningismus, lymphadenopathy Respiratory exam: Present: normal lung sounds bilaterally. Absent: respiratory distress, wheezes, rales, rhonchi, stridor Cardiovascular Exam: Present: regular rate, normal rhythm, normal heart sounds. Absent: systolic murmur, diastolic murmur, rubs, gallop, clicks GI/Abdominal exam: Present: soft, normal bowel sounds. Absent: distended, tenderness, guarding, rebound, rigid Extremities exam: Present: full ROM, tenderness (Tenderness to the dorsal aspect of the right hand, right wrist, and anatomical snuffbox.), normal capillary refill, other (Patient has soft tissue swelling noted to the dorsal aspect of the right hand. Skin is otherwise pink, warm, and dry. Cap refills less than 3 seconds. Radial pulses 2+ and equal bilaterally.). Absent: normal inspection, pedal edema, joint swelling, calf tenderness Back exam: Present: normal inspection, other (Nontender, no step-off, no deformity to firm midline palpation of the thoracic and lumbar vertebrae. Full range of motion without pain or limitation.). Absent: vertebral tenderness Neurological exam: Present: alert, oriented X3, CN II-XII intact Psychiatric exam: Present: normal affect, normal mood Skin exam: Present: warm, dry, intact, normal color. Absent: rash Course Vital Signs 12/09/17 17:13 Temperature 98.6 F Pulse Rate 96 Respiratory 18 Rate Blood Pressure 128/76 O2 Sat by Pulse 100 Oximetry Procedures - Orthopedic Splinting/Casting Injury #1 Side: right Upper Extremity Injury Location: short arm Upper Extremity Immobilizer: thumb spica, Jose Antonio wrap Additional Comments: Neurovascular status intact after splint application. Skin to the fingers is pink, warm, and dry. Cap refills less than 3 seconds. Patient denies any numbness or tingling. Medical Decision Making - Medical Decision Making 27-year-old female patient presented to the emergency department today for evaluation of right hand and wrist pain after fall down the stairs last night. Physical examination did reveal some soft tissue swelling over the dorsum of the right hand. Patient did have anatomical snuffbox tenderness. X-rays of the right hand and wrist were obtained and showed no acute fractures or dislocations. Given patient's anatomical snuffbox tenderness we'll place in a thumb spica splint and have her follow-up with orthopedics for further evaluation. She is instructed to take Tylenol Motrin for pain control. She is instructed to rest, ice, and elevate the extremity. Return parameters were discussed in detail. She verbalizes understanding and agrees with this plan. - Radiology Data Radiology results: report reviewed, image reviewed 4 views of the right wrist are obtained. No acute fracture dislocation evident in the right wrist. Joint spaces and the right wrist appear within normal limits. The overlying soft tissues appear unremarkable. Impression by Dr. Boyer shows no acute fracture dislocation of the right wrist. 3 views of the right hand are obtained. There is no acute fracture or dislocation evident in the right hand. Joint spaces and the right hand appear within normal limits. The overlying soft tissue appears unremarkable. Impression by Dr. Boyer shows no acute fracture dislocation of the right hand. Disposition Clinical Impression: Right wrist sprain, Sprain of right hand Disposition: HOME SELF-CARE Condition: Good Instructions: Wrist Injury (ED), Hand Sprain (ED) Additional Instructions: Keep splint in place until follow-up with orthopedics. Take Tylenol Motrin for pain control. Follow-up with physical security specialist for further evaluation as soon as possible. Return here immediately for any new, worsening, or concerning symptoms. Prescriptions: Ibuprofen [Motrin] 600 mg PO Q8HR PRN #30 tab PRN Reason: Pain Is patient prescribed a controlled substance at d/c from ED?: No Referrals: None,Stated [Primary Care Provider] - 1-2 days Time of Disposition: 18:30
--- NOTE | 2017-12-09 17:50 | XR ---
EXAMINATION TYPE: XR wrist complete RT DATE OF EXAM: 12/09/2017 CLINICAL HISTORY: Interval swelling after hyperextension injury. TECHNIQUE: Frontal, lateral, scaphoid, and oblique images of the right wrist are obtained. COMPARISON: Right hand x-ray September 27, 2013 FINDINGS: There is no acute fracture/dislocation evident in the right wrist. The joint spaces in th e right wrist appear within normal limits. The overlying soft tissue appears unremarkable. IMPRESSION: There is no acute fracture or dislocation in the right wrist.
--- NOTE | 2017-12-09 18:03 | XR ---
EXAMINATION TYPE: XR hand complete RT DATE OF EXAM: 12/09/2017 CLINICAL HISTORY: Pain and swelling after hyperextension injury TECHNIQUE: Frontal, lateral and oblique images of the right hand are obtained. COMPARISON: Right hand x-ray September 27, 2013 FINDINGS: There is no acute fracture/dislocation evident in the right hand. The joint spaces in the right hand appear within normal limits. The overlying soft tissue appears unremarkable. IMPRESSION: There is no acute fracture or dislocation in the right hand.
== END 2017-12-09 18:46 | disposition home or self-care (01) ==
LOC: EC 16:45
DX: S63.501A Unspecified sprain of right wrist, initial encounter (principal); S63.91XA Sprain of unspecified part of right wrist and hand, initial encounter; Z86.14 Personal history of Methicillin resistant Staphylococcus aureus infection; W10.9XXA Fall (on) (from) unspecified stairs and steps, initial encounter
CPT/HCPCS: 29125; 99283

== ENCOUNTER 2018-11-16 01:06 | Emergency (ER) | payer OTHER ==
[2018-11-16 01:13] VITALS: BP 111/72; PULSE 74; TEMP 97.6
[2018-11-16] MEDS ORDERED: FAMOTIDINE 20 MG TAB PO STA (01:36)
[2018-11-16] MEDS ORDERED: predniSONE 50 MG TAB PO STA (01:36)
[2018-11-16] MEDS ORDERED: diphenhydrAMINE 50 MG CAP PO STA (01:36)
--- NOTE | 2018-11-16 01:38 | ED ---
Skin/Abscess/FB HPI - General Chief complaint: Skin/Abscess/Foreign Body Stated complaint: rash Time Seen by Provider: 11/16/18 01:21 Source: patient Mode of arrival: ambulatory Limitations: no limitations - History of Present Illness Initial comments: 28-year-old female patient presents to the emergency department today for evaluation of rash to her back and arms. Patient states it started a few hours ago. States that the areas are very itchy. She denies exposure to new substances. Denies any fever or chills. Denies any recent travel. She denies any lip swelling, tongue swelling, throat swelling. Denies any shortness of breath. Patient denies any recent fever, chills, chest pain, abdominal pain, nausea, vomiting, diarrhea, constipation, back pain, numbness, tingling, dizziness, weakness, hematuria, dysuria, urinary urgency, urinary frequency, headache, visual changes, or any other complaints. - Related Data Previous Rx's Medication Instructions Recorded Famotidine [Pepcid] 20 mg PO DAILY #3 tablet 11/16/18 predniSONE 50 mg PO DAILY #3 tab 11/16/18 Allergies Allergy/AdvReac Type Severity Reaction Status Date / Time No Known Allergies Allergy Verified 12/09/17 17:17 Review of Systems ROS Statement: Those systems with pertinent positive or pertinent negative responses have been documented in the HPI. ROS Other: All systems not noted in ROS Statement are negative. Past Medical History Past Medical History: Pneumonia History of Any Multi-Drug Resistant Organisms: MRSA Date of last positivie culture/infection: 2010 MDRO Source:: inner left thigh Past Surgical History: Ear Surgery, Tonsillectomy Past Anesthesia/Blood Transfusion Reactions: No Reported Reaction Past Psychological History: No Psychological Hx Reported Smoking Status: Current every day smoker Past Alcohol Use History: Rare Past Drug Use History: None Reported - Past Family History Father Family Medical History: Diabetes Mellitus General Exam Limitations: no limitations General appearance: alert, in no apparent distress, other (Physical well- developed, well-nourished adult female patient in no acute distress. Vital signs upon presentation are temperature 97.6F, pulse 74, respirations 20, blood pressure 111/72, pulse ox 99% on room air.) Eye exam: Present: normal appearance, PERRL, EOMI. Absent: scleral icterus, conjunctival injection, periorbital swelling ENT exam: Present: normal exam, normal oropharynx, mucous membranes moist Respiratory exam: Present: normal lung sounds bilaterally. Absent: respiratory distress, wheezes, rales, rhonchi, stridor Cardiovascular Exam: Present: regular rate, normal rhythm, normal heart sounds. Absent: systolic murmur, diastolic murmur, rubs, gallop, clicks Neurological exam: Present: alert, oriented X3, CN II-XII intact Psychiatric exam: Present: normal affect, normal mood Skin exam: Present: warm, dry, intact, normal color, rash (There is urticaria noted over the arms and back. Lesions are non-petechial, nonvesicular. No mucosal lesions are noted.) Course Vital Signs 11/16/18 11/16/18 01:09 01:51 Temperature 97.6 F 97.6 F Pulse Rate 74 74 Respiratory 20 18 Rate Blood Pressure 111/72 111/72 O2 Sat by Pulse 99 99 Oximetry Medical Decision Making - Medical Decision Making 28-year-old female patient presented to the emergency department today for evaluation of rash. Physical examination revealed urticaria over the arms and back. She'll be treated with steroids, Benadryl, Pepcid. Prescriptions were sent to her pharmacy. She is instructed to follow-up with her primary care physician for recheck in 1-2 days. Return parameters discussed in detail. She verbalizes understanding and agrees with this plan. Disposition Clinical Impression: Urticaria Disposition: HOME SELF-CARE Condition: Good Instructions (If sedation given, give patient instructions): Urticaria (ED) Additional Instructions: Take medications as directed. Continue taking Benadryl [id number] every 6 hours as needed. Call your primary care physician for recheck in 1-2 days. Return to the emergency department immediately for any new, worsening, or concerning symptoms. Your prescriptions have been sent to the [facility] on [address] Prescriptions: Famotidine [Pepcid] 20 mg PO DAILY #3 tablet predniSONE 50 mg PO DAILY #3 tab Is patient prescribed a controlled substance at d/c from ED?: No Referrals: Camilla Isidro MD [Primary Care Provider] - 1-2 days Time of Disposition: 01:38
[2018-11-16 01:52] VITALS: RESP 18
== END 2018-11-16 01:50 | disposition home or self-care (01) ==
LOC: EC 01:06
DX: L50.9 Urticaria, unspecified (principal); F17.200 Nicotine dependence, unspecified, uncomplicated; Z86.14 Personal history of Methicillin resistant Staphylococcus aureus infection
CPT/HCPCS: 99282; J7512

== ENCOUNTER 2019-02-03 13:48 | Emergency (ER) | payer OTHER ==
--- NOTE | 2019-02-03 14:17 | ED ---
General Adult HPI - General Chief complaint: Psychiatric Symptoms Stated complaint: Mental health Time Seen by Provider: 02/03/19 13:59 Source: patient, police, RN notes reviewed, old records reviewed Mode of arrival: ambulatory Limitations: no limitations - History of Present Illness Initial comments: 28-year-old female presents from her counselor's office for evaluation of suicidal ideation and EPS evaluation. She was brought in by police because she could not obtain a ride. She was cooperative during transport. She denies suicide attempt. She states she had lost her daughter approximately 4 months ago she's been seeing a counselor since that time. She states she has dreams of not waking up. She denies any suicidal plan. Denies any physical complaints. No chronic medical conditions. - Related Data Home Medications Medication Instructions Recorded Confirmed Escitalopram [Lexapro] 10 mg PO DAILY 02/03/19 02/03/19 Allergies Allergy/AdvReac Type Severity Reaction Status Date / Time No Known Allergies Allergy Verified 02/03/19 14:56 Review of Systems ROS Statement: Those systems with pertinent positive or pertinent negative responses have been documented in the HPI. ROS Other: All systems not noted in ROS Statement are negative. Past Medical History Past Medical History: Pneumonia History of Any Multi-Drug Resistant Organisms: MRSA Date of last positivie culture/infection: 2010 MDRO Source:: inner left thigh Past Surgical History: Ear Surgery, Tonsillectomy Past Anesthesia/Blood Transfusion Reactions: No Reported Reaction Past Psychological History: No Psychological Hx Reported Smoking Status: Current every day smoker Past Alcohol Use History: Rare Past Drug Use History: None Reported - Past Family History Father Family Medical History: Diabetes Mellitus General Exam Limitations: no limitations General appearance: alert, in no apparent distress Head exam: Present: atraumatic, normocephalic Eye exam: Present: normal appearance, PERRL ENT exam: Present: normal exam Neck exam: Present: normal inspection. Absent: tenderness, meningismus Respiratory exam: Present: normal lung sounds bilaterally. Absent: respiratory distress, wheezes Cardiovascular Exam: Present: regular rate, normal rhythm GI/Abdominal exam: Present: soft. Absent: distended, tenderness, guarding Extremities exam: Present: normal inspection, normal capillary refill. Absent: pedal edema Neurological exam: Present: alert, oriented X3. Absent: motor sensory deficit Psychiatric exam: Present: depressed, flat affect, suicidal ideation Skin exam: Present: warm, dry, intact Course Vital Signs 02/03/19 13:50 Temperature 97.9 F Pulse Rate 113 H Respiratory 20 Rate Blood Pressure 130/86 O2 Sat by Pulse 100 Oximetry Medical Decision Making - Medical Decision Making 28-year-old female presenting for psychiatric evaluation. She is evaluated by [facility], she does contract to safety, she is no longer suicidal and I reevaluated the patient. She will have follow-up with mental crisis unit as well as her outpatient counselor. She will return with worsening or changing symptoms. - Lab Data Lab Results 02/03/19 Range/Units 14:17 Urine Opiates Screen Not Detected (NotDetected) Ur Oxycodone Screen Not Detected (NotDetected) Urine Methadone Screen Not Detected (NotDetected) Ur Propoxyphene Screen Not Detected (NotDetected) Ur Barbiturates Screen Not Detected (NotDetected) U Tricyclic Antidepress Not Detected (NotDetected) Ur Phencyclidine Scrn Not Detected (NotDetected) Ur Amphetamines Screen Not Detected (NotDetected) U Methamphetamines Scrn Not Detected (NotDetected) U Benzodiazepines Scrn Not Detected (NotDetected) Urine Cocaine Screen Not Detected (NotDetected) U Marijuana (THC) Screen Detected H (NotDetected) Disposition Clinical Impression: Depression Disposition: HOME SELF-CARE Condition: Good Instructions (If sedation given, give patient instructions): Depression (ED) Additional Instructions: Please follow up with your outpatient counselor as well as community mental health. Is patient prescribed a controlled substance at d/c from ED?: No Referrals: Camilla Isidro MD [Primary Care Provider] - 1-2 days Time of Disposition: 17:38
[2019-02-03 14:57] LABS: Amphetamine Screen,Urine Not Detected (NotDetected); Barbiturate Screen,Urine Not Detected (NotDetected); Benzodiazepines Screen,Urine Not Detected (NotDetected); Cocaine Screen,Urine Not Detected (NotDetected); Methadone Screen, Urine Not Detected (NotDetected); Opiate Screen,Urine Not Detected (NotDetected); Oxycodone Screen, Urine Not Detected (NotDetected); Phencyclidine Screen,Urine Not Detected (NotDetected); Tricyclic Antidepressant,Urine Not Detected (NotDetected); Urn Cannabinoid Scrn Detected (NotDetected)
[2019-02-03 17:51] VITALS: BP 118/74; PULSE 85; RESP 18; TEMP 97.6
== END 2019-02-03 17:48 | disposition home or self-care (01) ==
LOC: EC 13:48
DX: F32.9 Major depressive disorder, single episode, unspecified (principal); R45.851 Suicidal ideations; F17.200 Nicotine dependence, unspecified, uncomplicated; Z79.899 Other long term (current) drug therapy; Z86.14 Personal history of Methicillin resistant Staphylococcus aureus infection
CPT/HCPCS: 80306; 82075; 99285

== ENCOUNTER 2019-03-16 07:49 | Emergency (ER) | payer OTHER ==
[2019-03-16 07:54] VITALS: RESP 20; TEMP 97.7
[2019-03-16] MEDS ORDERED: KETOROLAC 30 MG/ML 1 ML VIAL IVP STA (08:12)
--- NOTE | 2019-03-16 08:25 | ED ---
Abdominal Pain HPI - General Chief Complaint: Abdominal Pain Stated Complaint: abd pain Time Seen by Provider: 03/16/19 07:58 Source: patient, RN notes reviewed Mode of arrival: ambulatory Limitations: no limitations - History of Present Illness Initial Comments: This a 28-year-old female presents emergency Department chief complaint of left lower quadrant abdominal pain. Patient states has been present for last 2 weeks. Patient states pain seems to radiate outward. Patient denies any vaginal bleeding or vaginal discharge last mental cycle was 2 weeks ago. Patient's had prior to location other abdominal surgeries no dysuria no hematuria. Patient has no complaints constipation, diarrhea, nausea vomiting. Patient states that she's been taking some Motrin occasionally states it does usually help for the pain. - Related Data Home Medications Medication Instructions Recorded Confirmed Escitalopram [Lexapro] 10 mg PO DAILY 02/03/19 02/03/19 Allergies Allergy/AdvReac Type Severity Reaction Status Date / Time No Known Allergies Allergy Verified 02/03/19 14:56 Review of Systems ROS Statement: Those systems with pertinent positive or pertinent negative responses have been documented in the HPI. ROS Other: All systems not noted in ROS Statement are negative. Past Medical History Past Medical History: Pneumonia History of Any Multi-Drug Resistant Organisms: MRSA Date of last positivie culture/infection: 2010 MDRO Source:: inner left thigh Past Surgical History: Ear Surgery, Tonsillectomy, Tubal Ligation Past Anesthesia/Blood Transfusion Reactions: No Reported Reaction Past Psychological History: No Psychological Hx Reported Smoking Status: Former smoker Past Alcohol Use History: Rare Past Drug Use History: None Reported - Past Family History Father Family Medical History: Diabetes Mellitus General Exam Limitations: no limitations General appearance: alert, in no apparent distress Head exam: Present: atraumatic, normocephalic, normal inspection Eye exam: Present: normal appearance, PERRL, EOMI. Absent: scleral icterus, conjunctival injection, periorbital swelling Neck exam: Present: normal inspection. Absent: tenderness, meningismus, lymphadenopathy Respiratory exam: Present: normal lung sounds bilaterally. Absent: respiratory distress, wheezes, rales, rhonchi, stridor Cardiovascular Exam: Present: regular rate, normal rhythm, normal heart sounds. Absent: systolic murmur, diastolic murmur, rubs, gallop, clicks GI/Abdominal exam: Present: soft, tenderness (Mild to moderate left lower quadrant), normal bowel sounds. Absent: distended, guarding, rebound, rigid Back exam: Absent: CVA tenderness (R), CVA tenderness (L) Neurological exam: Present: alert, oriented X3, CN II-XII intact Skin exam: Present: warm, dry, intact, normal color. Absent: rash Course Vital Signs 03/16/19 03/16/19 03/16/19 07:51 07:54 08:54 Temperature 97.7 F Pulse Rate 100 79 Respiratory 20 20 20 Rate Blood Pressure 119/80 126/81 O2 Sat by Pulse 100 98 Oximetry 03/16/19 09:54 Temperature Pulse Rate 81 Respiratory 20 Rate Blood Pressure 130/73 O2 Sat by Pulse 98 Oximetry Medical Decision Making - Medical Decision Making X-ray shows moderate amount of fecal stasis, ultrasound shows mild free fluid possible ovarian cyst rupture. Laboratory unremarkable urinalysis unremarkable. Patient improved after Toradol will be discharged return parameters were discussed. - Lab Data Result diagrams: 03/16/19 08:32 03/16/19 08:32 Lab Results 03/16/19 03/16/19 03/16/19 Range/Units 08:32 08:32 09:05 WBC 5.9 (3.8-10.6) k/uL RBC 4.32 (3.80-5.40) m/uL Hgb 13.4 (11.4-16.0) gm/dL Hct 40.9 (34.0-46.0) % MCV 94.7 (80.0-100.0) fL MCH 30.9 (25.0-35.0) pg MCHC 32.7 (31.0-37.0) g/dL RDW 11.9 (11.5-15.5) % Plt Count 274 (150-450) k/uL Neutrophils % 40 % Lymphocytes % 46 % Monocytes % 6 % Eosinophils % 3 % Basophils % 3 % Neutrophils # 2.3 (1.3-7.7) k/uL Lymphocytes # 2.7 (1.0-4.8) k/uL Monocytes # 0.4 (0-1.0) k/uL Eosinophils # 0.2 (0-0.7) k/uL Basophils # 0.2 (0-0.2) k/uL Sodium 140 (137-145) mmol/L Potassium 4.2 (3.5-5.1) mmol/L Chloride 110 H (98-107) mmol/L Carbon Dioxide 23 (22-30) mmol/L Anion Gap 7 mmol/L BUN 15 (7-17) mg/dL Creatinine 0.89 (0.52-1.04) mg/dL Est GFR (CKD-EPI)AfAm >90 (>60 ml/min/1.73 sqM) Est GFR (CKD-EPI)NonAf 89 (>60 ml/min/1.73 sqM) Glucose 91 (74-99) mg/dL Calcium 9.6 (8.4-10.2) mg/dL Total Bilirubin 0.4 (0.2-1.3) mg/dL AST 19 (14-36) U/L ALT 8 (4-34) U/L Alkaline Phosphatase 56 (38-126) U/L Total Protein 6.8 (6.3-8.2) g/dL Albumin 3.9 (3.5-5.0) g/dL Amylase 66 (30-110) U/L Lipase 75 (23-300) U/L Urine Color Urine Appearance (Clear) Urine pH (5.0-8.0) Ur Specific [place] (1.001-1.035) Urine Protein (Negative) Urine Glucose (UA) (Negative) Urine Ketones (Negative) Urine Blood (Negative) Urine Nitrite (Negative) Urine Bilirubin (Negative) Urine Urobilinogen (<2.0) mg/dL Ur Leukocyte Esterase (Negative) Urine WBC (0-5) /hpf Ur Squamous Epith Cells (0-4) /hpf Urine Bacteria (None) /hpf Urine Mucus (None) /hpf Urine HCG, Qual Not Detected (Not Detectd) 03/16/19 Range/Units 09:05 WBC (3.8-10.6) k/uL RBC (3.80-5.40) m/uL Hgb (11.4-16.0) gm/dL Hct (34.0-46.0) % MCV (80.0-100.0) fL MCH (25.0-35.0) pg MCHC (31.0-37.0) g/dL RDW (11.5-15.5) % Plt Count (150-450) k/uL Neutrophils % % Lymphocytes % % Monocytes % % Eosinophils % % Basophils % % Neutrophils # (1.3-7.7) k/uL Lymphocytes # (1.0-4.8) k/uL Monocytes # (0-1.0) k/uL Eosinophils # (0-0.7) k/uL Basophils # (0-0.2) k/uL Sodium (137-145) mmol/L Potassium (3.5-5.1) mmol/L Chloride (98-107) mmol/L Carbon Dioxide (22-30) mmol/L Anion Gap mmol/L BUN (7-17) mg/dL Creatinine (0.52-1.04) mg/dL Est GFR (CKD-EPI)AfAm (>60 ml/min/1.73 sqM) Est GFR (CKD-EPI)NonAf (>60 ml/min/1.73 sqM) Glucose (74-99) mg/dL Calcium (8.4-10.2) mg/dL Total Bilirubin (0.2-1.3) mg/dL AST (14-36) U/L ALT (4-34) U/L Alkaline Phosphatase (38-126) U/L Total Protein (6.3-8.2) g/dL Albumin (3.5-5.0) g/dL Amylase (30-110) U/L Lipase (23-300) U/L Urine Color Yellow Urine Appearance Cloudy H (Clear) Urine pH 6.0 (5.0-8.0) Ur Specific [place] 1.028 (1.001-1.035) Urine Protein Trace H (Negative) Urine Glucose (UA) Negative (Negative) Urine Ketones Negative (Negative) Urine Blood Negative (Negative) Urine Nitrite Negative (Negative) Urine Bilirubin Negative (Negative) Urine Urobilinogen <2.0 (<2.0) mg/dL Ur Leukocyte Esterase Negative (Negative) Urine WBC 1 (0-5) /hpf Ur Squamous Epith Cells 9 H (0-4) /hpf Urine Bacteria Rare H (None) /hpf Urine Mucus Few H (None) /hpf Urine HCG, Qual (Not Detectd) Disposition Clinical Impression: Abdominal pain Disposition: HOME SELF-CARE Condition: Stable Instructions (If sedation given, give patient instructions): Abdominal Pain (ED) Additional Instructions: Please return to the Emergency Department if symptoms worsen or any other concerns. Is patient prescribed a controlled substance at d/c from ED?: No Referrals: Camilla Isidro MD [Primary Care Provider] - 1-2 days Time of Disposition: 10:13
[2019-03-16 08:54] LABS: Basophils # (A) 0.2 k/uL (0-0.2); Basophils % (A) 3 %; Eosinophils # (A) 0.2 k/uL (0-0.7); Eosinophils % (A) 3 %; HCT 40.9 % (34.0-46.0); HGB 13.4 gm/dL (11.4-16.0); Lymphocytes # (A) 2.7 k/uL (1.0-4.8); Lymphocytes % (A) 46 %; MCH 30.9 pg (25.0-35.0); MCHC 32.7 g/dL (31.0-37.0); MCV 94.7 fL (80.0-100.0); Monocytes # (A) 0.4 k/uL (0-1.0); Monocytes % (A) 6 %; Neutrophils # (A) 2.3 k/uL (1.3-7.7); Neutrophils % (A) 40 %; Platelet Count 274 k/uL (150-450); RBC 4.32 m/uL (3.80-5.40); RDW 11.9 % (11.5-15.5); WBC 5.9 k/uL (3.8-10.6)
[2019-03-16 09:07] LABS: ALT 8 U/L (4-34); AST 19 U/L (14-36); African American GFR (CKD) >90 (>60 ml/min/1.73 sqM); Albumin 3.9 g/dL (3.5-5.0); Alkaline Phosphatase 56 U/L (38-126); Amylase 66 U/L (30-110); Anion Gap 7 mmol/L; Blood Urea Nitrogen 15 mg/dL (7-17); Calcium 9.6 mg/dL (8.4-10.2); Carbon Dioxide 23 mmol/L (22-30); Chloride 110 mmol/L (98-107); Glucose 91 mg/dL (74-99); Non-African American GFR(CKD) 89 (>60 ml/min/1.73 sqM); Potassium 4.2 mmol/L (3.5-5.1); Sodium 140 mmol/L (137-145); Total Bilirubin 0.4 mg/dL (0.2-1.3); Total Protein 6.8 g/dL (6.3-8.2)
--- NOTE | 2019-03-16 09:15 | US ---
EXAMINATION TYPE: US transvaginal DATE OF EXAM: 03/16/2019 COMPARISON: NONE CLINICAL HISTORY: Left lower quadrant pain. TECHNIQUE: Transvaginal (TV). Date of LMP: 02/27/19 EXAM MEASUREMENTS: Uterus: 8.8 cm Endometrial Stripe: 1.0 cm Right Ovary: 3.0 x 1.9 x 1.8 cm Left Ovary: 2.9 x 1.7 x 1.8 cm 1. Uterus: Anteverted wnl 2. Endometrium: wnl 3. Right Ovary: wnl 4. Left Ovary: wnl Spectral, color and waveform doppler imaging shows good arterial and venous flow within the ovaries ; there is no evidence for ovarian torsion. 5. Bilateral Adnexa: wnl 6. Posterior cul-de-sac: free fluid IMPRESSION: 1. Small amount of free fluid in the pelvis no definite acute abnormality
[2019-03-16 09:25] LABS: Appearance,Urine Cloudy (Clear); Bacteria,Urine Rare /hpf; Bilirubin,Urine Negative (Negative); Blood,Urine Negative (Negative); Color,Urine Yellow; Glucose,Urine (UA) Negative (Negative); Ketones,Urine Negative (Negative); Leukocyte Esterase,Urine Negative (Negative); Mucus,Urine Few /hpf; Nitrite,Urine Negative (Negative); Protein,Urine Trace (Negative); Specific Gravity,Urine 1.028 (1.001-1.035); Squamous Epithelial Cell,Urine 9 /hpf (0-4); Urobilinogen,Urine <2.0 mg/dL (<2.0); WBC,Urine 1 /hpf (0-5)
--- NOTE | 2019-03-16 10:00 | XR ---
EXAMINATION TYPE: XR KUB DATE OF EXAM: 03/16/2019 9:48 AM CLINICAL HISTORY: Abdominal pain and nausea TECHNIQUE: Single upright image of the abdomen is obtained. COMPARISON: 03/25/2016. FINDINGS: Scattered gas is seen in non-distended small bowel loops. Gas and fecal material is seen in non-distended colon. The liver is enlarged extending past the iliac crest. Tubal ligation clips are seen. Phleboliths are noted in the pelvis. Mild degree colonic fecal stasis. Degenerative changes of the pubic symphysis. The lung bases are clear and the osseous structures are intact. IMPRESSION: Mild degree colonic fecal stasis in an overall nonobstructive bowel gas pattern. Incident ally noted hepatomegaly.
[2019-03-16 10:09] VITALS: BP 130/73; PULSE 81
== END 2019-03-16 10:28 | disposition home or self-care (01) ==
LOC: EC 07:49
DX: R10.32 Left lower quadrant pain (principal); Z87.891 Personal history of nicotine dependence; Z79.899 Other long term (current) drug therapy
CPT/HCPCS: 36415; 80053; 82150; 83690; 85025; 81001; 81025; 74018; 76830; 99284; 96374; J1885; 93975

== ENCOUNTER 2019-04-20 08:18 | Emergency (ER) | payer OTHER ==
[2019-04-20 08:57] VITALS: RESP 20
[2019-04-20] MEDS ORDERED: ONDANSETRON 4 MG/2 ML VIAL IVP STA (09:00)
[2019-04-20] MEDS ORDERED: PANTOPRAZOLE 40 MG/10 ML VIAL IVP STA (09:00)
[2019-04-20] MEDS ORDERED: SODIUM CHLORIDE 0.9% 1,000 ML IV STA (09:00)
[2019-04-20] MEDS ORDERED: KETOROLAC 30 MG/ML 1 ML VIAL IVP STA (09:00)
--- NOTE | 2019-04-20 09:08 | ED ---
Abdominal Pain HPI - General Chief Complaint: Abdominal Pain Stated Complaint: N/V/D Time Seen by Provider: 04/20/19 08:37 Source: patient, RN notes reviewed, old records reviewed Mode of arrival: ambulatory Limitations: no limitations - History of Present Illness Initial Comments: Likely it is a 28-year-old female with nausea, diarrhea episodes for the past 24 hours. She also reports that she feels somewhat short of breath. She has been around his history of sick contacts with nausea and vomiting. - Related Data Home Medications Medication Instructions Recorded Confirmed Escitalopram [Lexapro] 10 mg PO DAILY 02/03/19 02/03/19 Previous Rx's Medication Instructions Recorded Ondansetron Odt [Zofran Odt] 4 mg PO Q8HR PRN #12 tab 04/20/19 Allergies Allergy/AdvReac Type Severity Reaction Status Date / Time No Known Allergies Allergy Verified 02/03/19 14:56 Review of Systems ROS Statement: Those systems with pertinent positive or pertinent negative responses have been documented in the HPI. ROS Other: All systems not noted in ROS Statement are negative. Past Medical History Past Medical History: Pneumonia History of Any Multi-Drug Resistant Organisms: MRSA Date of last positivie culture/infection: 2010 MDRO Source:: inner left thigh Past Surgical History: Ear Surgery, Tonsillectomy, Tubal Ligation Past Anesthesia/Blood Transfusion Reactions: No Reported Reaction Past Psychological History: No Psychological Hx Reported Smoking Status: Former smoker Past Alcohol Use History: Rare Past Drug Use History: None Reported - Past Family History Father Family Medical History: Diabetes Mellitus General Exam Limitations: no limitations General appearance: alert, in no apparent distress Head exam: Present: atraumatic, normocephalic, normal inspection Eye exam: Present: normal appearance, PERRL, EOMI. Absent: scleral icterus, conjunctival injection, periorbital swelling ENT exam: Present: normal exam, mucous membranes moist Neck exam: Present: normal inspection. Absent: tenderness, meningismus, lymphadenopathy Respiratory exam: Present: normal lung sounds bilaterally Cardiovascular Exam: Present: regular rate, normal rhythm, normal heart sounds. Absent: systolic murmur, diastolic murmur, rubs, gallop, clicks GI/Abdominal exam: Present: soft, normal bowel sounds. Absent: distended, tenderness, guarding, rebound, rigid Extremities exam: Present: normal inspection, full ROM, normal capillary refill. Absent: tenderness, pedal edema, joint swelling, calf tenderness Back exam: Present: normal inspection Neurological exam: Present: alert, oriented X3, CN II-XII intact Psychiatric exam: Present: normal affect, normal mood Skin exam: Present: warm, dry, intact, normal color. Absent: rash Course Vital Signs 04/20/19 04/20/19 04/20/19 08:25 08:56 10:48 Temperature 97.7 F 98.2 F 97.9 F Pulse Rate 105 H 88 67 Respiratory 18 20 20 Rate Blood Pressure 108/69 116/75 111/76 O2 Sat by Pulse 98 99 100 Oximetry Medical Decision Making - Medical Decision Making 28 year old female with CC of abdominal pain, diarrhea. She has been around sick contact. Patient at this time has normal labs, CXR and KUB are normal. Discussed gastroenteritis and a clear liquid diet. Discussed return parameters discussed. - Lab Data Result diagrams: 04/20/19 08:58 04/20/19 08:58 Lab Results 04/20/19 04/20/19 04/20/19 Range/Units 08:58 08:58 09:15 WBC 3.9 (3.8-10.6) k/uL RBC 4.28 (3.80-5.40) m/uL Hgb 12.9 (11.4-16.0) gm/dL Hct 40.0 (34.0-46.0) % MCV 93.6 (80.0-100.0) fL MCH 30.2 (25.0-35.0) pg MCHC 32.3 (31.0-37.0) g/dL RDW 11.7 (11.5-15.5) % Plt Count 265 (150-450) k/uL Neutrophils % (Manual) 38 % Lymphocytes % (Manual) 40 % Monocytes % (Manual) 15 % Eosinophils % (Manual) 6 % Basophils % (Manual) 1 % Neutrophils # (Manual) 1.48 (1.3-7.7) k/uL Lymphocytes # (Manual) 1.56 (1.0-4.8) k/uL Monocytes # (Manual) 0.59 (0-1.0) k/uL Eosinophils # (Manual) 0.23 (0-0.7) k/uL Basophils # (Manual) 0.04 (0-0.2) k/uL Nucleated RBCs 0 (0-0) /100 WBC Manual Slide Review Performed RBC Morphology Normal Sodium 136 L (137-145) mmol/L Potassium 4.1 (3.5-5.1) mmol/L Chloride 106 (98-107) mmol/L Carbon Dioxide 20 L (22-30) mmol/L Anion Gap 10 mmol/L BUN 16 (7-17) mg/dL Creatinine 0.96 (0.52-1.04) mg/dL Est GFR (CKD-EPI)AfAm >90 (>60 ml/min/1.73 sqM) Est GFR (CKD-EPI)NonAf 81 (>60 ml/min/1.73 sqM) Glucose 93 (74-99) mg/dL Calcium 9.2 (8.4-10.2) mg/dL Total Bilirubin 0.8 (0.2-1.3) mg/dL AST 21 (14-36) U/L ALT 9 (4-34) U/L Alkaline Phosphatase 66 (38-126) U/L Total Protein 7.0 (6.3-8.2) g/dL Albumin 3.9 (3.5-5.0) g/dL Amylase 50 (30-110) U/L Lipase 79 (23-300) U/L Urine Color Yellow Urine Appearance Cloudy H (Clear) Urine pH 6.0 (5.0-8.0) Ur Specific [place] 1.032 (1.001-1.035) Urine Protein 1+ H (Negative) Urine Glucose (UA) Negative (Negative) Urine Ketones 1+ H (Negative) Urine Blood Trace H (Negative) Urine Nitrite Negative (Negative) Urine Bilirubin Negative (Negative) Urine Urobilinogen 4.0 (<2.0) mg/dL Ur Leukocyte Esterase Trace H (Negative) Urine RBC <1 (0-5) /hpf Urine WBC 2 (0-5) /hpf Ur Squamous Epith Cells 9 H (0-4) /hpf Urine Mucus Moderate H (None) /hpf Urine HCG, Qual (Not Detectd) 04/20/19 Range/Units 09:15 WBC (3.8-10.6) k/uL RBC (3.80-5.40) m/uL Hgb (11.4-16.0) gm/dL Hct (34.0-46.0) % MCV (80.0-100.0) fL MCH (25.0-35.0) pg MCHC (31.0-37.0) g/dL RDW (11.5-15.5) % Plt Count (150-450) k/uL Neutrophils % (Manual) % Lymphocytes % (Manual) % Monocytes % (Manual) % Eosinophils % (Manual) % Basophils % (Manual) % Neutrophils # (Manual) (1.3-7.7) k/uL Lymphocytes # (Manual) (1.0-4.8) k/uL Monocytes # (Manual) (0-1.0) k/uL Eosinophils # (Manual) (0-0.7) k/uL Basophils # (Manual) (0-0.2) k/uL Nucleated RBCs (0-0) /100 WBC Manual Slide Review RBC Morphology Sodium (137-145) mmol/L Potassium (3.5-5.1) mmol/L Chloride (98-107) mmol/L Carbon Dioxide (22-30) mmol/L Anion Gap mmol/L BUN (7-17) mg/dL Creatinine (0.52-1.04) mg/dL Est GFR (CKD-EPI)AfAm (>60 ml/min/1.73 sqM) Est GFR (CKD-EPI)NonAf (>60 ml/min/1.73 sqM) Glucose (74-99) mg/dL Calcium (8.4-10.2) mg/dL Total Bilirubin (0.2-1.3) mg/dL AST (14-36) U/L ALT (4-34) U/L Alkaline Phosphatase (38-126) U/L Total Protein (6.3-8.2) g/dL Albumin (3.5-5.0) g/dL Amylase (30-110) U/L Lipase (23-300) U/L Urine Color Urine Appearance (Clear) Urine pH (5.0-8.0) Ur Specific [place] (1.001-1.035) Urine Protein (Negative) Urine Glucose (UA) (Negative) Urine Ketones (Negative) Urine Blood (Negative) Urine Nitrite (Negative) Urine Bilirubin (Negative) Urine Urobilinogen (<2.0) mg/dL Ur Leukocyte Esterase (Negative) Urine RBC (0-5) /hpf Urine WBC (0-5) /hpf Ur Squamous Epith Cells (0-4) /hpf Urine Mucus (None) /hpf Urine HCG, Qual Not Detected (Not Detectd) 04/20/19 17:08 AJ performed at 9:23 AM shows normal sinus rhythm normal EKG. Ventricular rate of 80 bpm. Interval is 154 ms. QRS duration is 92 ms. QT QTc is 364/419 ms. - Radiology Data Radiology results: report reviewed KUB shows non obstructive bowel gas pattern. Normal CXR. Disposition Clinical Impression: Gastroenteritis Disposition: HOME SELF-CARE Condition: Good Instructions (If sedation given, give patient instructions): Gastroenteritis (ED) Additional Instructions: Please use medication as discussed. Please follow up with family doctor if symptoms have not improved over the next two days. Please return to the emergency room if your symptoms increase or worsen or for any other concerns. Prescriptions: Ondansetron Odt [Zofran Odt] 4 mg PO Q8HR PRN #12 tab PRN Reason: Nausea Is patient prescribed a controlled substance at d/c from ED?: No Referrals: Camilla Isidro MD [Primary Care Provider] - 1-2 days Time of Disposition: 10:40
[2019-04-20 09:17] LABS: HGB 12.9 gm/dL (11.4-16.0); MCH 30.2 pg (25.0-35.0); MCHC 32.3 g/dL (31.0-37.0); MCV 93.6 fL (80.0-100.0); Mean Platelet Volume 7.7; Platelet Count 265 k/uL (150-450); RBC 4.28 m/uL (3.80-5.40); RDW 11.7 % (11.5-15.5); WBC 3.9 k/uL (3.8-10.6)
[2019-04-20 09:33] LABS: Appearance,Urine Cloudy (Clear); Bilirubin,Urine Negative (Negative); Blood,Urine Trace (Negative); Color,Urine Yellow; Glucose,Urine (UA) Negative (Negative); Ketones,Urine 1+ (Negative); Leukocyte Esterase,Urine Trace (Negative); Mucus,Urine Moderate /hpf; Nitrite,Urine Negative (Negative); Protein,Urine 1+ (Negative); RBC,Urine <1 /hpf (0-5); Specific Gravity,Urine 1.032 (1.001-1.035); Squamous Epithelial Cell,Urine 9 /hpf (0-4); WBC,Urine 2 /hpf (0-5)
[2019-04-20 09:43] LABS: ALT 9 U/L (4-34); AST 21 U/L (14-36); African American GFR (CKD) >90 (>60 ml/min/1.73 sqM); Albumin 3.9 g/dL (3.5-5.0); Alkaline Phosphatase 66 U/L (38-126); Amylase 50 U/L (30-110); Anion Gap 10 mmol/L; Blood Urea Nitrogen 16 mg/dL (7-17); Calcium 9.2 mg/dL (8.4-10.2); Carbon Dioxide 20 mmol/L (22-30); Chloride 106 mmol/L (98-107); Glucose 93 mg/dL (74-99); Non-African American GFR(CKD) 81 (>60 ml/min/1.73 sqM); Potassium 4.1 mmol/L (3.5-5.1); Sodium 136 mmol/L (137-145); Total Bilirubin 0.8 mg/dL (0.2-1.3)
--- NOTE | 2019-04-20 10:00 | XR ---
EXAMINATION TYPE: XR KUB DATE OF EXAM: 04/20/2019 COMPARISON: NONE HISTORY: Pain TECHNIQUE: One view abdominal series FINDINGS: The osseous structures are intact. The bowel gas pattern is nonspecific. Lung bases are clear. Post surgical change in the pelvis. Calcifications are nonspecific but likely vascular. IMPRESSION: 1. Nonspecific abdomen.
--- NOTE | 2019-04-20 10:00 | XR ---
EXAMINATION TYPE: XR chest 2V DATE OF EXAM: 04/20/2019 COMPARISON: 04/27/2016 TECHNIQUE: PA and lateral views submitted. HISTORY: Pain FINDINGS: The lungs are clear and there is no pneumothorax, pleural effusion, or focal pneumonia. Heart size normal. No overt failure. IMPRESSION: 1. No acute process.
[2019-04-20 10:43] LABS: Basophils # (M) 0.04 k/uL (0-0.2); Eosinophils # (M) 0.23 k/uL (0-0.7); Lymphocytes # (M) 1.56 k/uL (1.0-4.8); Monocytes # (M) 0.59 k/uL (0-1.0); Neutrophils # (M) 1.48 k/uL (1.3-7.7); Neutrophils % (M) 38 %; Nucleated Red Blood Cells 0 /100 WBC (0-0); Total Cells Counted 100
[2019-04-20 10:57] VITALS: BP 111/76; PULSE 67; TEMP 97.9
== END 2019-04-20 10:47 | disposition home or self-care (01) ==
LOC: EC 08:18
DX: K52.9 Noninfective gastroenteritis and colitis, unspecified (principal); Z79.899 Other long term (current) drug therapy; Z87.891 Personal history of nicotine dependence
CPT/HCPCS: 36415; 93005; 80053; 82150; 83690; 85025; 81001; 81025; 71046; 74018; 99284; 96374; 96375 ×2; 96361 ×2; J2405; J1885; C9113

== ENCOUNTER 2020-06-07 11:14 | Emergency (ER) | payer OTHER ==
[2020-06-07 12:06] VITALS: BP 137/83; PULSE 85; RESP 22; TEMP 97.8
--- NOTE | 2020-06-07 12:11 | ED ---
General Adult HPI - General Chief complaint: Shortness of Breath Stated complaint: cough, SOB Time Seen by Provider: 06/07/20 12:05 Source: patient, RN notes reviewed, old records reviewed Mode of arrival: ambulatory Limitations: no limitations - History of Present Illness Initial comments: Medical screening and exam: 29-year-old female presenting with several days of cough congestion, myalgia, concern for coronavirus. Patient does report some nausea and vomiting. No significant abdominal pain. She has some chest tightness. No history of CAD, DVT or PE. Patient is otherwise quite healthy. - Related Data Home Medications Medication Instructions Recorded Confirmed Escitalopram [Lexapro] 10 mg PO DAILY 02/03/19 02/03/19 Previous Rx's Medication Instructions Recorded Ondansetron Odt [Zofran Odt] 4 mg PO Q8HR PRN #12 tab 04/20/19 Allergies Allergy/AdvReac Type Severity Reaction Status Date / Time No Known Allergies Allergy Verified 06/07/20 12:06 Review of Systems ROS Statement: Those systems with pertinent positive or pertinent negative responses have been documented in the HPI. ROS Other: All systems not noted in ROS Statement are negative. Past Medical History Past Medical History: Pneumonia History of Any Multi-Drug Resistant Organisms: MRSA Date of last positivie culture/infection: 2010 MDRO Source:: inner left thigh Past Surgical History: Ear Surgery, Tonsillectomy, Tubal Ligation Past Anesthesia/Blood Transfusion Reactions: No Reported Reaction Past Psychological History: No Psychological Hx Reported Smoking Status: Current every day smoker Past Alcohol Use History: Rare Past Drug Use History: None Reported - Past Family History Father Family Medical History: Diabetes Mellitus General Exam - General Exam Comments Initial Comments: 21-year-old female, no acute distress, vital signs reviewed, stable, no hypoxia. Good air entry bilaterally. Limitations: no limitations General appearance: alert, in no apparent distress Head exam: Present: atraumatic, normocephalic Eye exam: Present: normal appearance, PERRL Neck exam: Present: normal inspection. Absent: tenderness, meningismus Respiratory exam: Present: normal lung sounds bilaterally. Absent: respiratory distress, wheezes, rales Cardiovascular Exam: Present: regular rate, normal rhythm GI/Abdominal exam: Present: soft. Absent: distended, tenderness, guarding, rebound Extremities exam: Present: normal inspection, normal capillary refill. Absent: pedal edema Psychiatric exam: Present: normal affect, normal mood Skin exam: Present: warm, dry, intact. Absent: cyanosis, diaphoretic Course Vital Signs 06/07/20 12:04 Temperature 97.8 F Pulse Rate 85 Respiratory 22 Rate Blood Pressure 137/83 O2 Sat by Pulse 98 Oximetry Medical Decision Making - Medical Decision Making 29-year-old female with concern for coronavirus. Coronavirus testing is negative, although I do still have a suspicion for disease even the constellation of symptoms. She is well-appearing, vitals are stable no hypoxia. Chest x-ray clear with no focal pneumonia. She will be discharged home, instructed to quarantine and repeat present with any worsening or changing symptoms. - Lab Data Lab Results 06/07/20 Range/Units 12:09 Coronavirus (PCR) Not Detected (Not Detectd) Disposition Clinical Impression: Viral syndrome Disposition: HOME SELF-CARE Condition: Fair Instructions (If sedation given, give patient instructions): Viral Syndrome (E D) Is patient prescribed a controlled substance at d/c from ED?: No Referrals: Camilla Isidro MD [Primary Care Provider] - 1-2 days Time of Disposition: 14:34
--- NOTE | 2020-06-07 12:51 | XR ---
EXAMINATION TYPE: XR chest 1V portable DATE OF EXAM: 06/07/2020 COMPARISON: Chest x-ray 04/20/2019 HISTORY: Cough TECHNIQUE: Single frontal view of the chest is obtained. FINDINGS: There is no focal air space opacity, pleural effusion, or pneumothorax seen. The cardiac silhouette size is within normal limits. The osseous structures are intact. IMPRESSION: No acute process.
== END 2020-06-07 15:08 | disposition home or self-care (01) ==
LOC: EC 11:14
DX: B34.9 Viral infection, unspecified (principal); F17.200 Nicotine dependence, unspecified, uncomplicated; Z20.822 Contact with and (suspected) exposure to COVID-19; Z90.89 Acquired absence of other organs; Z98.51 Tubal ligation status; Z86.14 Personal history of Methicillin resistant Staphylococcus aureus infection; Z87.01 Personal history of pneumonia (recurrent)
CPT/HCPCS: 71045; 87635; 99285

== ENCOUNTER 2022-07-26 09:00 | Emergency (ER) | payer OTHER ==
--- NOTE | 2022-07-26 09:44 | ED ---
General Adult HPI - General Chief complaint: Extremity Injury, Upper Stated complaint: Cant move finger Time Seen by Provider: 07/26/22 09:19 Source: patient, RN notes reviewed Mode of arrival: ambulatory Limitations: no limitations - History of Present Illness Initial comments: Patient is a pleasant 32-year-old female presenting to the emergency Department with right finger problems. Patient believes incident started yesterday well at work. Patient was using the side of her hand to place a plastic speaker parts. Patient has discomfort near the MCP of right fifth. Patient holds the finger in extension and has difficulty with flexion. Patient has pain with attempted flexion. No swelling. No redness. No fever. - Related Data Home Medications Medication Instructions Recorded Confirmed Escitalopram [Lexapro] 10 mg PO DAILY 02/03/19 02/03/19 Previous Rx's Medication Instructions Recorded Ondansetron Odt [Zofran Odt] 4 mg PO Q8HR PRN #12 tab 04/20/19 Allergies Allergy/AdvReac Type Severity Reaction Status Date / Time No Known Allergies Allergy Verified 07/26/22 09:13 Review of Systems ROS Statement: Those systems with pertinent positive or pertinent negative responses have been documented in the HPI. ROS Other: All systems not noted in ROS Statement are negative. Constitutional: Denies: fever Eyes: Denies: eye pain ENT: Denies: ear pain Respiratory: Denies: cough Cardiovascular: Denies: chest pain Endocrine: Denies: fatigue Gastrointestinal: Denies: abdominal pain Genitourinary: Denies: urgency Musculoskeletal: Reports: as per HPI Past Medical History Past Medical History: Pneumonia History of Any Multi-Drug Resistant Organisms: MRSA Date of last positivie culture/infection: 2010 MDRO Source:: inner left thigh Past Surgical History: Ear Surgery, Tonsillectomy, Tubal Ligation Past Anesthesia/Blood Transfusion Reactions: No Reported Reaction Past Psychological History: No Psychological Hx Reported Smoking Status: Current every day smoker Past Alcohol Use History: Rare Past Drug Use History: Marijuana - Past Family History Father Family Medical History: Diabetes Mellitus General Exam Limitations: no limitations General appearance: alert, in no apparent distress Head exam: Present: atraumatic Eye exam: Present: normal appearance Neck exam: Present: normal inspection. Absent: tenderness Respiratory exam: Present: normal lung sounds bilaterally Cardiovascular Exam: Present: regular rate, normal rhythm Expanded Peripheral pulses: 2+: Radial (R) Right Hand Wrist exam: Present: tenderness (Right fifth MCP), other (Fifth finger held in extension. Decreased range of motion at MCP. Pain with active or passive flexion. Tenderness limited to MCP. Distally the extremity is neurovascular intact.). Absent: swelling, ecchymosis, erythema, amputation Neurological exam: Present: alert Psychiatric exam: Present: normal affect, normal mood Skin exam: Present: normal color. Absent: erythema Course Vital Signs 07/26/22 09:08 Temperature 97.7 F Pulse Rate 90 Respiratory 18 Rate Blood Pressure 116/68 O2 Sat by Pulse 100 Oximetry Procedures - Orthopedic Splinting/Casting Injury #1 Side: right Upper Extremity Injury Location: short arm Upper Extremity Immobilizer: ulnar gutter Medical Decision Making - Medical Decision Making Was pt. sent in by a medical professional or institution (, PA, [employer], urgent care, hospital, or residential...) When possible be specific @ -No Did you speak to anyone other than the patient for history (EMS, parent, family, police, friend...)? What history was obtained from this source @ -No Did you review nursing and triage notes (agree or disagree)? Why? @ -I reviewed and agree with nursing and triage notes Were old charts reviewed (outside hosp., previous admission, EMS record, old EKG, old radiological studies, urgent care reports/EKG's, residential records)? Report findings @ -No old charts were reviewed Differential Diagnosis (chest pain, altered mental status, abdominal pain women, abdominal pain men, vaginal bleeding, weakness, fever, dyspnea, syncope, headache, dizziness, GI bleed, back pain, seizure, CVA, palpatations, mental health)? @ -not applicable EKG interpreted by me (3pts min.). @ -As above X-rays interpreted by me (1pt min.). @ -X-ray of right hand does show small chip fracture of the proximal fifth phalanx at the MCP. CT interpreted by me (1pt min.). @ -None done U/S interpreted by me (1pt. min.). @ -None done What testing was considered but not performed or refused? (CT, X-rays, U/S, labs)? Why? @ -None What meds were considered but not given or refused? Why? @ -None Did you discuss the management of the patient with other professionals (professionals i.e. , PA, [employer], lab, RT, psych nurse, social services designee, director religious education, teacher, staff combat information center officer, case consultant)? Give summary @ -No Was smoking cessation discussed for >3mins.? @ -No Was critical care preformed (if so, how long)? @ -No Were there social determinants of health that impacted care today? How? (Homelessness, low income, unemployed, alcoholism, drug addiction, transportation, low edu. Level, literacy, decrease access to med. care, retirement, rehab)? @ -No Was there de-escalation of care discussed even if they declined (Discuss DNR or withdrawal of care, Hospice)? DNR status @ -No What co-morbidities impacted this encounter? (DM, HTN, Smoking, COPD, CAD, Cancer, CVA, ARF, Chemo, Hep., AIDS, mental health diagnosis, sleep apnea, morbid obesity)? @ -None Was patient admitted / discharged? Hospital course, mention meds given and route, prescriptions, significant lab abnormalities, going to OR and other pertinent info. @ -Patient had splint placed. Patient updated on results and need for follow- up. Patient is specifically made aware of concern for possible tendon injury and need for close follow-up with hand specialist. Patient will be provided information for follow-up with [facility] as well as orthopedic call Dr. Hernandez Undiagnosed new problem with uncertain prognosis? @ -No Drug Therapy requiring intensive monitoring for toxicity (Heparin, Nitro, Insulin, Cardizem)? @ -No Were any procedures done? @ -Ulnar gutter splint Diagnosis/symptom? @ -Finger fracture, possible tendon disruption Acute, or Chronic, or Acute on Chronic? @ -Acute Uncomplicated (without systemic symptoms) or Complicated (systemic symptoms)? @ -default Side effects of treatment? @ -No Exacerbation, Progression, or Severe Exacerbation? @ -No Poses a threat to life or bodily function? How? (Chest pain, USA, OR, pneumonia, PE, COPD, DKA, ARF, appy, cholecystitis, CVA, Diverticulitis, Homicidal, Suicidal, threat to staff... and all critical care pts) @ -No Disposition Clinical Impression: Finger fracture, Injury of flexor tendon of right hand Disposition: HOME SELF-CARE Condition: Stable Instructions (If sedation given, give patient instructions): Hand Fracture (ED) Additional Instructions: Please follow-up with [facility] as well as orthopedics, Dr. Hernandez. Please do so today or tomorrow. You will need further care regarding this injury, potentially surgery. Keep splint in place. Ice to affected area. No use of right hand until released by Dr. Return for increased pain, swelling, redness, finger problems, worsening symptoms or other concerns. [id number] nter Motrin or Tylenol as needed. Is patient prescribed a controlled substance at d/c from ED?: No Referrals: Camilla Isidro MD [Primary Care Provider] - 1-2 days Margarita Hernandez DO [Doctor of Osteopathic Medicine] - 1-2 days Time of Disposition: 10:05
--- NOTE | 2022-07-26 10:08 | XR ---
EXAMINATION TYPE: XR hand complete RT DATE OF EXAM: 07/26/2022 COMPARISON: 12/09/2017 HISTORY: Pain TECHNIQUE: Three views are submitted. FINDINGS: There is a small bony fragment extending off the base proximal phalanx fifth digit stable 2008 compat ible with remote chip fracture small exostosis extending off base fourth metacarpal. Remaining osseou s structures intact. Joint spaces preserved. 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 IMPRESSION: 1. 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
[2022-07-26 10:34] VITALS: BP 120/78; PULSE 74; RESP 16; TEMP 98.1
== END 2022-07-26 10:34 | disposition home or self-care (01) ==
LOC: EC 09:00
DX: S62.616A Displaced fracture of proximal phalanx of right little finger, initial encounter for closed fracture (principal); F17.200 Nicotine dependence, unspecified, uncomplicated; F12.90 Cannabis use, unspecified, uncomplicated; X58.XXXA Exposure to other specified factors, initial encounter
CPT/HCPCS: 29125; 99283

== ENCOUNTER 2024-04-14 16:39 | Emergency (ER) | payer OTHER ==
[2024-04-14 17:44] LABS: Influenza A Detected (Not Detectd); Influenza B Not Detected (Not Detectd); RSV Not Detected (Not Detectd)
--- NOTE | 2024-04-14 18:39 | XR ---
EXAMINATION TYPE: XR chest 2V DATE OF EXAM: 04/14/2024 5:53 PM COMPARISON: 06/07/2020 CLINICAL INDICATION: Female, 33 years old with history of chest pain, TECHNIQUE: XR chest 2V view(s) obtained. FINDINGS: The heart size is normal. The pulmonary vasculature is normal. The lungs are clear. IMPRESSION: 1. No acute pulmonary process. [facility], Workstation: [facility], 04/14/2024 6:37 PM
--- NOTE | 2024-04-14 19:05 | ED ---
Chest Pain HPI - General Chief Complaint: Chest Pain Stated Complaint: Chest Pain, [place], Headache Time Seen by Provider: 04/14/24 18:50 Source: patient, RN notes reviewed, old records reviewed Mode of arrival: ambulatory Limitations: no limitations - History of Present Illness Initial Comments: This is a 33-year-old female to the ER for evaluation of chest pain chest pain body aches pain shortness of breath cough congestion leg pain back pain belly pain. Patient has nausea no vomiting positive sick contacts include daughter unsure of illness MD Complaint: chest pain, other (Fever cough congestion) -: days(s) Pain Location: substernal Pain Radiation: none Severity: moderate Severity scale (1-10): 7 Quality: sharp Consistency: constant Improves With: nothing Worsens With: nothing Anginal Symptoms: nausea Other Symptoms: palpitations Treatments Prior to Arrival: none - Related Data Home Medications Medication Instructions Recorded Confirmed Escitalopram [Lexapro] 10 mg PO DAILY 02/03/19 02/03/19 Previous Rx's Medication Instructions Recorded Ondansetron Odt [Zofran Odt] 4 mg PO Q8HR PRN #12 tab 04/20/19 Allergies Allergy/AdvReac Type Severity Reaction Status Date / Time No Known Allergies Allergy Verified 04/14/24 16:49 Review of Systems ROS Statement: Those systems with pertinent positive or pertinent negative responses have been documented in the HPI. ROS Other: All systems not noted in ROS Statement are negative. Past Medical History Past Medical History: Pneumonia History of Any Multi-Drug Resistant Organisms: MRSA Date of last positivie culture/infection: 2010 MDRO Source:: inner left thigh Past Surgical History: Ear Surgery, Tonsillectomy, Tubal Ligation Past Anesthesia/Blood Transfusion Reactions: No Reported Reaction Past Psychological History: No Psychological Hx Reported Smoking Status: Former smoker Past Alcohol Use History: Occasional Past Drug Use History: Marijuana - Past Family History Father Family Medical History: Diabetes Mellitus General Exam Limitations: no limitations General appearance: alert, in no apparent distress Head exam: Present: atraumatic, normocephalic, normal inspection Eye exam: Present: normal appearance, PERRL, EOMI. Absent: scleral icterus, co njunctival injection, periorbital swelling ENT exam: Present: normal exam, mucous membranes moist Neck exam: Present: normal inspection. Absent: tenderness, meningismus, lymphadenopathy Respiratory exam: Present: normal lung sounds bilaterally. Absent: respiratory distress, wheezes, rales, rhonchi, stridor Cardiovascular Exam: Present: regular rate, normal rhythm, normal heart sounds. Absent: systolic murmur, diastolic murmur, rubs, gallop, clicks GI/Abdominal exam: Present: soft, normal bowel sounds. Absent: distended, tenderness, guarding, rebound, rigid Extremities exam: Present: normal inspection, full ROM, normal capillary refill. Absent: tenderness, pedal edema, joint swelling, calf tenderness Back exam: Present: normal inspection Neurological exam: Present: alert, oriented X3, CN II-XII intact Psychiatric exam: Present: normal affect, normal mood Skin exam: Present: warm, dry, intact, normal color. Absent: rash Course Vital Signs 04/14/24 16:46 Temperature 100.0 F H Pulse Rate 108 H Respiratory 20 Rate Blood Pressure 113/73 O2 Sat by Pulse 100 Oximetry - Reevaluation(s) Reevaluation #1: 04/14/24 19:26 Medical records reviewed Reevaluation #2: 04/14/24 19:26 Symptoms are unchanged Reevaluation #3: 04/14/24 19:26 Informed of results and questions answered Reevaluation #4: Was pt. sent in by a medical professional or institution (, PA, [employer], urgent care, hospital, or senior care...) When possible be specific @ -no Did you speak to anyone other than the patient for history (EMS, parent, family, police, friend...)? What history was obtained from this source @ -no Did you review nursing and triage notes (agree or disagree)? Why? @ -agree Are old charts reviewed (outside hosp., previous admission, EMS record, old EKG, old radiological studies, urgent care reports/EKG's, senior care records)? Report findings @ -yes Differential Diagnosis (chest pain, altered mental status, abdominal pain women, abdominal pain men, vaginal bleeding, weakness, fever, dyspnea, syncope, headache, dizziness, GI bleed, back pain, seizure, CVA, palpatations, mental health, musculoskeletal)? @ -prior EKG interpreted by me (3pts min.). @ -yes X-rays interpreted by me (1pt min.). @ -yes negative for acute disease CT interpreted by me (1pt min.). @ -no U/S interpreted by me (1pt. min.). @ -no What testing was considered but not performed or refused? (CT, X-rays, U/S, labs)? Why? @ -none What meds were considered but not given or refused? Why? @ -none Did you discuss the management of the patient with other professionals (professionals i.e. Dr., PA, [employer], lab, RT, psych nurse, social welfare administrator, food counter worker, teacher, juvenile detention officer, sample case porter)? Give summary @ -no Was smoking cessation discussed for >3mins.? @ -no Was critical care preformed (if so, how long)? @ -no Were there social determinants of health that impacted care today? How? (Homelessness, low income, unemployed, alcoholism, drug addiction, transportation, low edu. Level, literacy, decrease access to med. care, custodial, rehab)? @ -none Was there de-escalation of care discussed even if they declined (Discuss DNR or withdrawal of care, Hospice)? DNR status @ -no What co-morbidities impacted this encounter? (DM, HTN, Smoking, COPD, CAD, Cancer, CVA, ARF, Chemo, Hep., AIDS, mental health diagnosis, sleep apnea, morbid obesity)? @ -none Was patient admitted / discharged? Hospital course, mention meds given and route, prescriptions, significant lab abnormalities, going to OR and other pertinent info. @ - Undiagnosed new problem with uncertain prognosis? @ -no Drug Therapy requiring intensive monitoring for toxicity (Heparin, Nitro, Insulin, Cardizem)? @ -no Were any procedures done? @ -no Diagnosis/symptom? @ - Acute, or Chronic, or Acute on Chronic? @ -Acute Uncomplicated (without systemic symptoms) or Complicated (systemic symptoms)? @ -Complicated Side effects of treatment? @ -no Exacerbation, Progression, or Severe Exacerbation? @ -exacerbation Poses a threat to life or bodily function? How? (Chest pain, [place], [place], pneumonia, PE, COPD, DKA, ARF, appy, cholecystitis, CVA, Diverticulitis, Homicidal, Suicidal, threat to staff... and all critical care pts) @ -yes Reevaluation #5: differential Fever: Pneumonia, viral URI, endocarditis, myocarditis, pericarditis, otitis, sinusitis, peritonsillar Abscess, retropharyngeal Abscess, epiglottitis, peritonitis, appendicitis, [place] cystitis, diverticulitis, hepatitis, colitis, UTI, PID, TOA, pyelonephritis, prostatitis, epididymitis, meningitis, encephalit is, pulmonary embolism, CVA, thyroid storm, pancreatitis, adrenal crisis, cavernous sinus thrombosis, this is not meant to be an all-inclusive list. Chest Pain MDM - MDM 33 female positive fever positive influenza chest x-ray is negative patient can be discharged home on anti-inflammatories Motrin Tylenol Disposition Clinical Impression: Fever, Influenza A Disposition: HOME SELF-CARE Condition: Good Instructions (If sedation given, give patient instructions): Influenza (ED) Is patient prescribed a controlled substance at d/c from ED?: No Referrals: Afia Hdez DO [Primary Care Provider] - 1-2 days Time of Disposition: 19:00
[2024-04-14] MEDS: dexAMETHasone 2 MG TAB PO STA (19:27)
[2024-04-14] MEDS: IBUPROFEN 600 MG STARTER PACK 4 TAB BTL PO STA (19:28)
[2024-04-14] MEDS: IBUPROFEN 800 MG TAB PO STA (19:28)
[2024-04-14] MEDS: ACETAMINOPHEN TAB 500 MG TAB PO STA (19:31)
[2024-04-14 19:33] VITALS: BP 99/63; PULSE 99; RESP 18; TEMP 99.2
== END 2024-04-14 19:33 | disposition home or self-care (01) ==
LOC: EC 16:39
DX: R50.9 Fever, unspecified (principal); J10.1 Influenza due to other identified influenza virus with other respiratory manifestations; Z87.891 Personal history of nicotine dependence
CPT/HCPCS: 93005; 87636; 71046; 99285; J8540